=== PATIENT | male | born 1970 | race Caucasian/White ===

== ENCOUNTER 2018-12-21 20:21 | Inpatient (IN) | payer BC, OTHER ==
[~2018-12-21] VITALS: Ht 180.3 cm; Wt 106.1 kg
[2018-12-21] MEDS ORDERED: ASPIRIN 81 MG CHEW TAB PO ONE ×2 (21:00→22:00)
[2018-12-21 21:50] LABS: BILIRUBIN,URINE NEGATIVE (NEGATIVE); CLARITY,URINE CLEAR (CLEAR); COLOR,URINE YELLOW (YELLOW); KETONES,URINE 1+ (NEGATIVE); LEUKOCYTE ESTERASE ,URINE NEGATIVE (NEGATIVE); NITRITE,URINE NEGATIVE (NEGATIVE); PROTEIN,URINE DIPSTICK 2+ (NEGATIVE); URINE UROBILINOGEN 0.2 mg/dL (0.2 - 1)
--- NOTE | 2018-12-21 21:50 | NUR ---
PATIENT BROUGHT INTO TRIAGE. DR. LAMAS IN TRIAGE FOR PATIENT EVALUATION AND DISCUSSING PLAN OF CARE. PT VERBALIZES UNDERSTANDING.
[2018-12-21 21:52] LABS: BASOPHILS # (AUTO) 0.1 (0.0-0.1); BASOPHILS % 0.8 % (0.0-1.0); EOSINOPHILS # (AUTO) 0.4 (0.0-0.4); EOSINOPHILS % 3.9 % (0.0-6.0); HEMATOCRIT 44.6 % (38.2-49.6); HEMOGLOBIN 15.2 g/dL (14.0-18.0); LYMPHOCYTES # (AUTO) 3.1 (1.0-3.2); LYMPHOCYTES % 31.8 % (18.0-39.1); MEAN CORPUSCULAR HEMOGLOBIN 29.6 pg (28-32); MEAN CORPUSCULAR HGB CONC 34.1 g/dL (31-35); MEAN CORPUSCULAR VOLUME 86.9 fL (81-99); MONOCYTES # (AUTO) 0.7 (0.2-0.8); MONOCYTES % 6.6 % (4.4-11.3); NEUTROPHILS # (AUTO) 5.6 (2.1-6.9); NEUTROPHILS % 56.5 % (38.7-80.0); PLATELET COUNT 247 x10e3/uL (140-360); RED BLOOD COUNT 5.13 x10e6/uL (4.3-5.7); RED CELL DISTRIBUTION WIDTH 12.6 % (11.7-14.4)
[2018-12-21] MEDS ORDERED: NITROGLYCERIN 2% OINT 1 GM PKT TOP ONE (22:00)
--- NOTE | 2018-12-21 22:03 | Diagnostic Imaging Report ---
EXAMINATION: CHEST SINGLE (NOT PORTABLE) INDICATION: Chest pain COMPARISON: None FINDINGS: AP view TUBES and LINES: None. LUNGS: Lungs are well inflated. Lungs are clear. There is no evidence of pneumonia or pulmonary edema. PLEURA: No pleural effusion or pneumothorax. HEART AND MEDIASTINUM: The cardiomediastinal silhouette is unremarkable. BONES AND SOFT TISSUES: No acute osseous lesion. Soft tissues are unremarkable. UPPER ABDOMEN: No free air under the diaphragm. IMPRESSION: No acute thoracic abnormality. Signed by: Harshal Hoyt DO on 12/21/2018 10:00 PM
[2018-12-21 22:21] LABS: INR 0.8; PROTHROMBIN TIME 11.5 seconds (11.9-14.5)
[2018-12-21 22:22] LABS: PARTIAL THROMBOPLASTIN TIME 27.7 seconds (23.8-35.5)
[2018-12-21 22:25] LABS: ALBUMIN 4.6 g/dL (3.5-5.0); ALBUMIN/GLOBULIN RATIO 1.2 (0.8-2.0); ANION GAP 19.2 mmol/L (8-16); CREATININE, SERUM 1.3 mg/dL (0.72-1.25); POTASSIUM 4.2 mmol/L (3.5-5.1)
[2018-12-21 22:32] LABS: BACTERIA,URINE MODERATE /HPF; CREATINE KINASE MB 1.6 ng/mL (0-5.0); EPITHELIAL CELLS,URINE MODERATE /LPF
[2018-12-22] VITALS (13 sets, daily range): BP systolic 102–162; BP diastolic 49–115
--- NOTE | 2018-12-22 | NUR ---
REPORT GIVEN TO CARMEN COOPER
--- NOTE | 2018-12-22 | NUR ---
RECEIVED REPORT FROM CARMEN LOPEZ.
[2018-12-22 01:28] LABS: CREATINE KINASE MB 4.3 ng/mL (0-5.0)
--- OUTSIDE RECORDS SUMMARY | 2018-12-22 03:35 | XMS REPORT ---
Author Author [facility] Address Unknown Phone Unavailable Care Team Providers Care Injection Moulding Machine Operator Name Role Phone Abiola GUERRA Unavailable Unavailable Problems This patient has no known problems. Allergies, Adverse Reactions, Alerts This patient has no known allergies or adverse reactions. Medications This patient has no known medications. Results Test Description Test Time Test Comments Text Results Atomic Results Result Comments CHEST SINGLE (NOT PORTABLE) 2018-12-21 21:59:00 [place] [address] Patient Name: JESSIE MENDEZ MR #: [id number] : 1970 Age/Sex: 48/M Req #: [id number] Adm Physician: Ordered by: DECLAN GUERRA MD Report #: [id number] Location: ER Room/Bed: Procedure: [id number] DX/CHEST SINGLE (NOT PORTABLE) Exam Date: 12/21/18 Exam Time: 2124 REPORT STATUS: Signed EXAMINATION: CHEST SINGLE (NOT PORTABLE) INDICATION: Chest pain COMPARISON: None FINDINGS: AP view TUBES and LINES: None. LUNGS: Lungs are well inflated. Lungs are clear. There is no evidence of pneumonia or pulmonary edema. PLEURA: No pleural effusion or pneumothorax. HEART AND MEDIASTINUM: The cardiomediastinal silhouette is unremarkable. BONES AND SOFT TISSUES: No acute osseous lesion. Soft tissues are unremarkable. UPPER ABDOMEN: No free air under the diaphragm. IMPRESSION: No acute thoracic abnormality. Signed by: Harshal Hoyt DO on 12/21/2018 10:00 PM Dictated By: HARSHAL HOYT DO 99 Transcribed By: GERA on 12/21/182199 COPY TO: DECLAN GUERRA MD
--- NOTE | 2018-12-22 08:35 | NUR ---
REPORT FROM CARMEN RENEE; PATIENT SLEEPING AT THIS TIME. WILL CONTINUE TO MONITOR.
[2018-12-22] MEDS ORDERED: ASPIRIN 81 MG ENTERIC COATED PO SCH (09:00)
[2018-12-22 09:09] LABS: CREATINE KINASE MB 56.7 ng/mL (0-5.0)
[2018-12-22] MEDS ORDERED: HEPARIN SOD (PORCINE) 5,000 UNIT/ML VIAL IV ONE (09:30)
[2018-12-22] MEDS: HEPARIN 25,000 UNIT 1,000 UNIT in DEXTROSE 5% 250ML 250 ML IV SCH ×4 (10:23→11:21)
[2018-12-22] MEDS ORDERED: HEPARIN 25,000 UNIT DRIP IV ONE (10:27)
--- NOTE | 2018-12-22 11:25 | NUR ---
@ 1023 - HEPARIN INFUSION BEGAN AT 11MLS/HR, BASED ON PROTOCOL IN EMR; @ 1122 - HEPARIN INFUSION NOW RUNNING AT 10MLS/HR BASED ON ORDER NOW PLACED FOR HEPARIN DOSING. VERIFIED BY CARMEN DRUMMOND
[2018-12-22] MEDS ORDERED: METOPROLOL TARTRATE 25 MG TAB PO SCH (11:30)
--- NOTE | 2018-12-22 11:41 | NUR ---
HEPARIN DRIP DISCONTINUED @[address] POT[address] DR. POTTS AT BEDSIDE SPEAKING WITH PATIENT.
[2018-12-22] MEDS ORDERED: CLOPIDOGREL BISULFATE 75 MG TAB ONE (11:43)
[2018-12-22] MEDS ORDERED: CLOPIDOGREL BISULFATE 75 MG TAB PO ONE (11:45)
[2018-12-22] MEDS ORDERED: SODIUM CHLORIDE 0.9% 1000ML 1,000 ML ONE ×2 (11:55→12:03)
[2018-12-22] MEDS ORDERED: EPTIFIBATIDE 75mg 100ML 100 ML IV STA (11:58)
[2018-12-22] MEDS: EPTIFIBATIDE 75mg 100ML 100 ML IV SCH ×3 (12:00→23:45)
[2018-12-22] MEDS ORDERED: EPTIFIBATIDE 2 MG/1 ML 10ML VIAL IV ONE ×2 (12:00→12:15)
[2018-12-22] MEDS ORDERED: FENTANYL CITRATE/PF 100MCG/2 ML INJ ONE (12:02)
[2018-12-22] MEDS ORDERED: MIDAZOLAM HCL 2 MG/2 ML VIAL ONE (12:02)
[2018-12-22] MEDS ORDERED: HEPARIN SOD/SOD CHLORIDE 2,000 ML ONE (12:02)
[2018-12-22] MEDS ORDERED: LIDOCAINE HCL 2% LOCAL 20 ML VIAL ONE (12:02)
[2018-12-22] MEDS ORDERED: IOPAMIDOL 370 MG/ML 200 ML INFUS..BTL INJ ONE ×2 (12:03→12:56)
[2018-12-22] MEDS ORDERED: EPTIFIBATIDE 75mg 100ML 100 ML ONE (12:04)
--- NOTE | 2018-12-22 12:26 | NUR ---
REPORT TO CLAY TRANSPORTER RN, CONSENT DONE AT BEDSIDE, PATIENT CLOTHING AND JEWELRY REMOVED AND SENT WITH DAUGHTER.
[2018-12-22] MEDS ORDERED: VERAPAMIL HCL 2.5 MG/ML 2 ML VIAL ONE (12:39)
[2018-12-22] MEDS ORDERED: SODIUM CHLORIDE 0.9% 50ML 50 ML ONE (12:56)
[2018-12-22] MEDS ORDERED: BIVALRIUDIN 250 MG/VIAL VIAL IV ONE (12:56)
--- NOTE | 2018-12-22 13:25 | NUR ---
bedside report received from Qing Ng RN. Alert oriented and appropriate, PERRLA, respirations even and unlabored to room air. Pulses x4 extremities equal and strong. Pedal pulses PT/DP strong and marked. Cap fill brisk < 3 sec. TR band to right wrist w/ 15ml Skin warm and dry integrity appears intact. IV 18g to left AC presents healthy w/o s/s of infiltration or complaint. Abdomen soft and supple. No personal affects with patient. Family not available. Pt verbalizes understanding of POC. On bedside telemetry room 10. Currently w/o complaint of pain or need. Integrilin verified by qing/Tiburcio. bed low and locked, call light at bedside. monitoring active. -cgf
--- NOTE | 2018-12-22 13:40 | NUR ---
1340pm Bedside report received from Tiburcio MORALES. Identiferx3 Alert oriented and appropriate, PERRLA, respirations even and unlabored to room air. Pulses x4 extremities equal and strong. Pedal pulses PT/DP XXXXX Cap fill brisk < 3 sec. NSTEMI heart cath from ED Dr Rosi Baptiste. [facility] Stents x2 LAD and x1 Circ via RT TR band approach (15cc air)ok to reduce at 1520pm Integrilin drip to continue at 17cchr via pump.High alert drip verified with Tiburcio MORALES. Skin warm and dry integrity appears D/I. IV 18g to left ac. Presents healthy w/o s/s of infiltration or complaint. Abdomen soft and supple. pt offered toileting, denies need to urinate or defecate. No personal affects with patient. Family at bedside Md spoke with family and presented with copies stent card and diagram. Pt and family verbalizes understanding of POC. Rt Tr band site w/o s/s hematoma or oozing. ICU staff will reduce air. Has normal neuro vascular function. Dressing dry and intact. 1430p Report phone ICU public health staff nurseCARMEN Crow. Transported to ICU #[id number] on zoll monitor VS stable NO gross issues pain pallor pressure or dysrhythmia. ds/carmen
--- NOTE | 2018-12-22 13:46 | NUR ---
report off to Maria Victoria MORALES, Dr Rosi Baptiste speaking w/ pt and received verbal consent to call daughter
[2018-12-22] MEDS ORDERED: HYDROCODONE/APAP 5MG-325MG TAB PO PRN (14:00)
[2018-12-22] MEDS ORDERED: ACETAMINOPHEN 325 MG TAB PO PRN (14:00)
[2018-12-22] MEDS ORDERED: ONDANSETRON HCL INJ 2MG/ML 2ML 2 MG/ML VIAL IV PRN (14:00)
--- NOTE | 2018-12-22 15:00 | NUR ---
1500 completed face to face handoff with Jocelynn Rn x2 high alert Integrilin check off for drip rate 17cchr via iv controller. Aware ok to reduce air in TR band at 1520pm No s/s oozing or hematoma Normal neuro vascular function Stable vs and Ekg Transfer completed to bed with Rn at bedside Low position ,locked and call light at bedside. No gross issues pain pallor or dysrhythmia. ds/rn
--- NOTE | 2018-12-22 15:02 | Consultation ---
DATE OF CONSULTATION: 12/22/2018 Cardiac consultation REASON FOR CONSULTATION: Urgent consultation from the emergency room with the patient with non-ST elevation myocardial infarction with positive troponin. HISTORY: A 48-year-old gentleman relatively healthy diagnosed at one stage with hypertension, hypercholesteremia. He is not taking his medication. He is very physically active. He is nonsmoker, not alcohol drinker. He went to work yesterday, had chest pain. He continued working and then at night his chest pain became more severe. He came to the emergency room. His initial EKG showed ST-segment depression in few leads. His 1st set of cardiac enzymes is normal. Urgent cardiac consultation is obtained where the patient is seen immediately in the emergency room with positive MB and troponin. The patient is still having a little bit of chest pressure, chest tightness. The patient on heparin, which was stopped upon my evaluation. The patient's symptoms are very typical of unstable coronary syndrome and now he has ruled in for non ST elevation myocardial infarction. Beside that, he denied having any other prior cardiovascular system complaint. He does have easy fatigability, shortness of breath on exertion recently and "some indigestion." He thought it is all GI in nature. REVIEW OF SYSTEMS: GENERAL: No fever, no chills. HEENT: No vision problem. No hearing problem. No allergies. No hay fever. PULMONARY: No cough. No hemoptysis. No recent travel. CARDIAC: As per acute illness. GI: No hematemesis. No melena. No indigestion. No heartburn. : No hematuria, no dysuria. MUSCULOSKELETAL: No aches, no pain. HEMATOLOGY: No easy bruising or bleeding. ENDOCRINE: No diabetes mellitus. SOCIAL HISTORY: He is divorcee. He is nonsmoker and non-alcohol drinker. He is garden equipment mechanic. HOME MEDICATION: None. ALLERGIES: NONE. PAST MEDICAL HISTORY: 1. Appendectomy. 2. Tonsillectomy. 3. Hypertension. 4. Hypercholesteremia, but he was not taking any medication. FAMILY HISTORY: Father at age 76 relatively well. Mother in her 50s with myocardial infarction. Two sibling, one brother, one sister, both are healthy. Two children, one daughter, one son are healthy. PHYSICAL EXAMINATION: VITAL SIGNS: Height of 5 feet 11 inches, weight of 234 pounds, blood pressure 120/80, heart rate of 90, respiratory rate of 18. HEENT: Pupils are reactive. NECK: No elevation of jugular venous pulsation. No bruit. CHEST: Clear to auscultation and percussion. HEART: PMI 5th left intercostal space. Normal first and second heart sounds. ABDOMEN: Soft with good bowel sounds. No organomegaly. No abdominal bruits. EXTREMITIES: No cyanosis, no clubbing, no edema. NEUROLOGIC: Nonfocal. IMPRESSION AND PLAN: 1. Non-ST elevation myocardial infarction. 2. Hypertension. 3. Hypercholesteremia. PLAN: The patient was given 600 mg Plavix. We will start Integrilin drip. The patient will be taken to the lab nurse for urgent cardiac catheterization and intervention. Procedure risks, benefits, alternatives are discussed and explained. MD DAVIDSON Scott/LISA /[id number]
--- NOTE | 2018-12-22 16:09 | NUR ---
Pt does not have an advanced directive. Patient refused advanced directives information.
--- NOTE | 2018-12-22 16:17 | Operative Report ---
DATE OF PROCEDURE: 12/22/2018 SURGEON: James Baptiste MD PROCEDURE PERFORMED: 1. Left heart cardiac catheterization, coronary angiography. 2. Left ventriculography. 3. PCI of the long prox mid LAD lesion with two overlapping stents. 4. PCI of the mid circumflex artery lesion with one drug-eluting stent. INDICATION FOR PROCEDURE: A 48-year-old gentleman with past medical history of hypertension, hypercholesteremia, presents to this institution with chest pain symptoms and rapidly elevating troponin going from baseline of 0.129 to 2.687 with a CK-MB going from 1.6 to 56.7, compatible with a diagnosis of [id number] myocardial infarction with ischemic rest pain. DESCRIPTION OF PROCEDURE: After risks, benefits, pros and cons of this procedure were briefly explained, the patient agreed to proceed. The patient was brought to the cardiac catheterization laboratory in an emergent fashion and the right wrist was prepped and draped in usual sterile fashion. Preprocedure aspirin and Plavix were given prior to arrival to the cardiac catheterization laboratory in addition to heparin and was given a couple of Integrilin boluses. A 1% lidocaine solution was used on the right wrist region. Access to the right radial artery was obtained and a short 6-Amharic Terumo slender sheath was placed. Intra-arterial verapamil 2.5 mg and nitroglycerin 200 mcg were given through the sheath and we decided to proceed with diagnostic angiography and left ventriculography. We took a 5-Amharic [place] 4.0 diagnostic catheter and selected both coronary arteries and performed left ventriculography. This revealed problem areas with a long proximal mid LAD lesion with haziness concerning for maybe thrombosis in addition to mid circumflex artery at 75% to 80% with haziness as well with ambiguous which one is the culprit artery. We decided to proceed with intervention. Left ventricular ejection fraction was performed prior to intervention showing EF of 45% with some mild hypokinesis globally. End-diastolic pressure of 18 mmHg. At that point in time, we took an exchange J-wire and took a 6-Amharic XB 3.5 lad guiding catheter and selected the left main coronary ostia. IV Angiomax bolus was given for systemic anticoagulation and Integrilin infusion was continued. We then took a 0.014 run-through 180 cm guidewire and successfully crossed into the distal LAD past the series of long 85% LAD lesion with GERA-2 flow. We performed two overlapping stents, a Resolute Chavez 2.5 x 38 in the mid LAD overlapped by a 3.0 x 22 deploying that proximally. The mid LAD stent was deployed up to 12 atmospheres of pressure. The overlapped proximal LAD stent was deployed up to 17 atmospheres of pressure. Next, we advanced the stent balloon and hit the overlap with the 15 atmospheres of pressure. Funneling of the artery quite nicely. Final angiography revealed 0% residual stenosis and GERA-3 flow improved from GERA-2 and no complications. At that point in time, we focused our attention to the mid circumflex artery, which showed a 75% to 80% hazy stenosis at the mid circumflex OM1 bifurcation. We took the same run-through wire and crossed the lesion. We then took a Synergy 2.25 x 16 mm drug-eluting stent and deployed up to 12 atmospheres of pressure. Final angiography revealed 0% residual stenosis, GERA-3 flow and no complications. At the conclusion of case, the guiding catheter was removed with a J-wire and a Terumo TR band was successfully deployed utilizing pain hemostasis technique and total of 15 mL of air was placed. COMPLICATIONS: None. ESTIMATED BLOOD LOSS: Minimal. FINDINGS: 1. Left main angiographically normal, gives rise to an LAD and circumflex branch. 2. The LAD has a long tubular prox to mid LAD stenosis followed by an 80% stenosis. The mid LAD was mild diffuse disease and the apical LAD has a 95% focal stenosis too distal for intervention. 3. The left circumflex artery gives rise to a mid marginal branch and at that junction, there is a 75% to 80% hazy stenosis in the mid circumflex artery extending into the proximal OM1 branch. 4. RCA is dominant, gives rise to right PDA, right PLV. There is a 50% distal RCA stenosis. 5. Left ventricular ejection fraction is 45% with mild global hypokinesis, end-diastolic pressure of 18 mmHg. There is no significant LV to aortic pullback gradient. INTERVENTION SUMMARY: 1. Successful treatment of the long tubular prox to mid LAD lesion with implantation of two overlapping stents of Resolute Chavez 3.0 x 22, followed by Resolute Chavez 2.5 x 38 mm drug-eluting stent, resulting in 0% residual stenosis and improvement of flow from GERA-2 to GERA-3 and no complications. 2. Successful treatment of the mid circumflex artery extending into the OM1 branch stenosis, which was 80% and hazy resulting in 0% residual stenosis and GERA-3 flow and this was treated with a Synergy 2.25 x 16 mm drug-eluting stent. PLAN/RECOMMENDATIONS: 1. Aspirin, Plavix therapy. 2. Statin therapy. 3. Aggressive risk factor modification medical therapy. 4. Integrilin infusion overnight. 5. Inpatient admission for further care management. MD DEBORAH Rocha/MODL /[id number]
[2018-12-22] MEDS: METOPROLOL TARTRATE 25 MG TAB PO SCH (17:15)
[2018-12-22] MEDS: ATORVASTATIN 20 MG TAB PO SCH (21:30)
[2018-12-22] MEDS: SODIUM CHLORIDE 0.9% 1000ML 1,000 ML IV SCH (23:53)
[2018-12-23] VITALS (22 sets, daily range): BP systolic 98–154; BP diastolic 72–110
[2018-12-23] MEDS: SODIUM CHLORIDE 0.9% 1000ML 1,000 ML IV SCH (02:21)
[2018-12-23 05:01] LABS: BASOPHILS # (AUTO) 0.1 (0.0-0.1); BASOPHILS % 0.4 % (0.0-1.0); EOSINOPHILS # (AUTO) 0.2 (0.0-0.4); EOSINOPHILS % 1.6 % (0.0-6.0); HEMATOCRIT 40.1 % (38.2-49.6); HEMOGLOBIN 13.5 g/dL (14.0-18.0); LYMPHOCYTES # (AUTO) 3.1 (1.0-3.2); LYMPHOCYTES % 26.5 % (18.0-39.1); MEAN CORPUSCULAR HEMOGLOBIN 29.6 pg (28-32); MEAN CORPUSCULAR HGB CONC 33.7 g/dL (31-35); MEAN CORPUSCULAR VOLUME 87.9 fL (81-99); MONOCYTES % 8.9 % (4.4-11.3); NEUTROPHILS # (AUTO) 7.2 (2.1-6.9); NEUTROPHILS % 62.3 % (38.7-80.0); PLATELET COUNT 227 x10e3/uL (140-360); RED BLOOD COUNT 4.56 x10e6/uL (4.3-5.7); RED CELL DISTRIBUTION WIDTH 12.7 % (11.7-14.4)
[2018-12-23 05:46] LABS: CHOL/HDL RATIO 8.7 (3.9-4.7); CHOLESTEROL 252 MD/DL (0-199); HDL CHOLESTEROL 29 MG/DL (40-60); TRIGLYCERIDES 589 MG/DL (0-149)
[2018-12-23] MEDS: EPTIFIBATIDE 75mg 100ML 100 ML IV SCH (06:35)
[2018-12-23 07:22] LABS: ALBUMIN 3.8 g/dL (3.5-5.0); ALBUMIN/GLOBULIN RATIO 1.2 (0.8-2.0); ANION GAP 15.2 mmol/L (8-16); CALCIUM 9.3 mg/dL (8.4-10.2); CREATININE, SERUM 1.29 mg/dL (0.72-1.25); POTASSIUM 4.2 mmol/L (3.5-5.1)
[2018-12-23] MEDS: METOPROLOL TARTRATE 25 MG TAB PO SCH (08:19)
[2018-12-23] MEDS: ASPIRIN 325 MG TAB PO SCH (08:19)
[2018-12-23] MEDS: CLOPIDOGREL BISULFATE 75 MG TAB PO SCH (08:20)
[2018-12-23] MEDS: CARVEDILOL 12.5 MG TAB PO SCH ×2 (15:51→17:00)
--- NOTE | 2018-12-23 16:44 | NUR ---
Nutrition Screen Note RD Recommendation for Physician: -Continue diet as ordered -RD provided education on diabetic diet as consulted. Plan of Care: RD following, monitoring for tolerance and adequacy, diet education Nutrition reason for involvement: RN Consult Diet education Primary Diagnose(s): NSTEMI PMH: HTN , hypercholesteremia Ht: 71in Wt: 240lb BMI: 33.5kg/m2 IBW: 172lb +/- 10% RD Assessment: (12/23) Chart reviewed. Labs and meds reviewed. 48yo M, who was admitted for NSTEMI. Pt had heart cath with stent placement yesterday. HbA1c at 11.8%. Visited pt in the room. Pt was eating well without any GI complains. Normal BM. Pt denied any chewing or swallowing difficulty. Pt denied any hx of diabetes. RD offered education on diabetic diet and pt was agreeable. All questions have been answered. Current Diet: ADA 1800 Malnutrition Evaluation (12/23/2018) The patient does not meet criteria for a specified degree of malnutrition at this time. Will re-evaluate at follow-up as appropriate. Diet Education Needs Assessment: Diet education indicated, pt was agreeable. Learner(s): pt Time spent: 20minutes Barriers: No barriers identified. Cultural/Language Modifications: No cultural/language modifications noted. Pt speaks Icelandic. Readiness: Acceptance Method: Discussions, handouts Topics: Carbohydrate exchanges, Carbohydrate counting handouts, Reading the nutrition label, meal planning tips, exercise tips, servings/portion sizes, S/S of hypo & hyperglycemia Understanding/Compliance: Expect fair understanding/compliance from pt. Will benefit from reinforcement. All questions have been answered. Nutrition Care Level: low Signed: Madeline Subramanian, , RD, LD
[2018-12-23] MEDS: ATORVASTATIN 20 MG TAB PO SCH (22:45)
[2018-12-24] VITALS: BP 163/112
[2018-12-24 02:38] VITALS: BP 163/112
[2018-12-24 04:00] VITALS: BP 154/94
--- NOTE | 2018-12-24 07:13 | NUR ---
Report given to CARMEN Roblero at this time. Pt resting comfortably in bed and in no apparent distress.
--- NOTE | 2018-12-24 07:24 | NUR ---
Rcvd patient in report this am. Patient is asleep in bed at this time. No s/s of distress noted
[2018-12-24 08:00] VITALS: BP 129/86
[2018-12-24] MEDS: CLOPIDOGREL BISULFATE 75 MG TAB PO SCH (08:22)
[2018-12-24] MEDS: CARVEDILOL 12.5 MG TAB PO SCH (08:22)
[2018-12-24] MEDS: ASPIRIN 325 MG TAB PO SCH (08:22)
[2018-12-24] MEDS ORDERED: LISINOPRIL 10 MG TAB PO SCH (09:00)
[2018-12-24 09:37] VITALS: BP 129/86
--- NOTE | 2018-12-24 10:36 | NUR ---
Patient is AAOx3. Patient is post op heart cath. No c/o chest pain at this time. Lung gu clear to auscultation. Bowel sounds present x4. Patient ambulates on his own. No shortness of breath noted Left AC IV in place
[2018-12-24] MEDS ORDERED: PLAVIX75 MG PO (11:48)
[2018-12-24 12:15] VITALS: BP 110/64
[2018-12-24] MEDS ORDERED: COREG3.125 MG PO (13:54)
[2018-12-24] MEDS ORDERED: ASPIR 8181 MG PO (13:54)
[2018-12-24] MEDS ORDERED: LIPITOR20 MG PO (13:55)
[2018-12-24] MEDS ORDERED: LISINOPRIL10 MG PO (13:55)
[2018-12-24] MEDS ORDERED: METFORMIN HCL500 MG PO (13:55)
--- NOTE | 2018-12-24 14:16 | NUR ---
Removed IV from left AC. Pressure dressing applied.
--- NOTE | 2018-12-24 14:19 | NUR ---
Patient discharged from facility to home. Patient assisted out via staff. Reviewed all discharge paperwork, follow up appts and RX's given. No questions, comments, or concerns verbalized at this time.
--- NOTE | 2018-12-24 20:41 | Discharge Summary ---
FINAL DIAGNOSIS: Non ST-elevation myocardial infarction. SECONDARY DIAGNOSES: 1. Newly diagnosed diabetes. 2. Dyslipidemia. 3. Hypertriglyceridemia. 4. Obesity. CONSULTANTS: Dr. Baptiste, Cardiology. PROCEDURES/STUDIES PERFORMED: 1. Stent placement. 2. Echocardiogram. SECONDARY DIAGNOSIS: Systolic congestive heart failure. HISTORY: Per H and P. HOSPITAL COURSE: The patient was admitted with non ST elevation UT. The patient was emergently taken to the microbiology laboratory manager where intervention was done. The patient also has depressed ejection fraction. At this time, he will be discharged home with aspirin, Plavix, beta-blockers, lisinopril, and statin. The patient will follow up with duct layer and we will re-evaluate the ejection fraction. As far as hypertriglyceridemia, possibly controlling his sugar, this make it better. The patient will be started on metformin for his newly diagnosed diabetes. The patient was seen and examined today. It took 32 minutes to discharge this patient. All his questions are answered. The patient will follow up with Cardiology in a week and also follow up with his primary care doctor in 2 to 4 weeks. CONDITION ON DISCHARGE: Improved. DISCHARGE MEDICATIONS: Please see medication reconciliation form. Of note, the patient understands no strenuous activity for the next month. MD TITO Vann/LISA /[id number]
== END 2018-12-24 14:19 | disposition home or self-care (01) | DRG 247 ==
LOC: ER 20:21 → ERHOLD 12-22 03:31 → CATH LAB V 12-22 12:14 → OBSVTOIN 12-22 13:55 → ICU 12-22 15:02 → MED/SURG 12-23 19:56
PROVIDERS: ADMIT Internal Medicine; ATTEND Internal Medicine
PROC: 027136Z Dilation of Coronary Artery, Two Arteries with Three Drug-eluting Intraluminal Devices, Percutaneous Approach (ICD-10-PCS; principal; 2018-12-22)
PROC: 4A023N7 Measurement of Cardiac Sampling and Pressure, Left Heart, Percutaneous Approach (ICD-10-PCS; 2018-12-22)
PROC: B2111ZZ Fluoroscopy of Multiple Coronary Arteries using Low Osmolar Contrast (ICD-10-PCS; 2018-12-22)
PROC: B2151ZZ Fluoroscopy of Left Heart using Low Osmolar Contrast (ICD-10-PCS; 2018-12-22)
DX: I21.4 Non-ST elevation (NSTEMI) myocardial infarction (principal); I10 Essential (primary) hypertension; I25.110 Atherosclerotic heart disease of native coronary artery with unstable angina pectoris; E78.00 Pure hypercholesterolemia, unspecified; Z82.49 Family history of ischemic heart disease and other diseases of the circulatory system; E66.9 Obesity, unspecified; Z68.32 Body mass index [BMI] 32.0-32.9, adult; E11.9 Type 2 diabetes mellitus without complications; Z79.84 Long term (current) use of oral hypoglycemic drugs
CPT/HCPCS: 36415; 71045; 80053; 80061; 81001; 82550; 82553; 83036; 83880; 84484; 85025; 85610; 85730; 92928; 92929; 93005; 93306; 93458; 99285; C1766; C1874; C1887; J0583; J1327; J1644; J2001; J2250; J3010; J7030; Q9967

== ENCOUNTER 2021-02-03 14:57 | Inpatient (IN) | payer OTHER ==
[~2021-02-03] VITALS: Ht 185.4 cm; Wt 124.4 kg
[~2021-02-03 14:57] MED LIST: ASPIR 8181 MG PO; COREG3.125 MG PO; ETOMIDATE 2 MG/ML 10 ML INJ IV ONE; LIPITOR20 MG PO; LISINOPRIL10 MG PO; METFORMIN HCL500 MG PO; MIDAZOLAM HCL 2 MG/2 ML VIAL ONE; PLAVIX75 MG PO; SUCCINYLCHOLINE CHLORIDE 20 MG/ML 10ML VIAL ONE; VECURONIUM BROMIDE FOR INJ 20 MG VIAL ONE; WATER STERILE 10 ML VIAL ONE
[2021-02-03] MEDS ORDERED: DEXAMETHASONE SOD PHOS INJ 4 MG/ML VIAL IV ONE (15:30)
[2021-02-03] MEDS ORDERED: ACETAMINOPHEN 325 MG TAB PO PRN (15:30)
[2021-02-03 15:53] LABS: BASOPHILS % 0.1 % (0.0-1.0); HEMATOCRIT 41.5 % (38.2-49.6); HEMOGLOBIN 14.2 g/dL (14.0-18.0); LYMPHOCYTES # (AUTO) 0.9 (1.0-3.2); LYMPHOCYTES % 11.5 % (18.0-39.1); MEAN CORPUSCULAR HGB CONC 34.2 g/dL (31-35); MEAN CORPUSCULAR VOLUME 84.9 fL (81-99); MONOCYTES # (AUTO) 0.9 (0.2-0.8); MONOCYTES % 12.2 % (4.4-11.3); NEUTROPHILS # (AUTO) 5.6 (2.1-6.9); NEUTROPHILS % 75.4 % (38.7-80.0); PLATELET COUNT 199 x10e3/uL (140-360); RED BLOOD COUNT 4.89 x10e6/uL (4.3-5.7); RED CELL DISTRIBUTION WIDTH 12.8 % (11.7-14.4)
[2021-02-03 16:05] LABS: ALBUMIN 3.6 g/dL (3.5-5.0); ANION GAP 18.1 mmol/L (8-16); CALCIUM 8.3 mg/dL (8.4-10.2); CREATININE, SERUM 1.58 mg/dL (0.72-1.25); POTASSIUM 3.1 mmol/L (3.5-5.1)
[2021-02-03 16:17] LABS: ALBUMIN/GLOBULIN RATIO 0.9 (0.8-2.0)
[2021-02-03] MEDS ORDERED: SODIUM CHLORIDE 0.9% 1000ML 1,000 ML IV SCH (16:45)
[2021-02-03] MEDS: ENOXAPARIN 30 MG/0.3 ML SYR SC SCH (18:29)
[2021-02-03] MEDS: ZINC SULFATE 220 MG CAP PO SCH (18:29)
[2021-02-03] MEDS: DEXAMETHASONE SOD PHOS 10 MG/1 ML VIAL IV SCH (18:29)
[2021-02-03] MEDS: ASCORBIC ACID 500 MG TAB PO SCH (18:29)
[2021-02-03] MEDS: ACETAMINOPHEN 325 MG TAB PO PRN (18:30)
[2021-02-03] MEDS ORDERED: REMDESIVIR 200MG 200 MG in SODIUM CHLORIDE 0.9% 100 ML 100 ML IV ONE (18:30)
[2021-02-03] MEDS: CEFTRIAXONE 1 GM in SODIUM CHLORIDE 0.9% 50ML 50 ML IV SCH (20:00)
[2021-02-03] MEDS ORDERED: ZOLPIDEM TARTRATE 5 MG TAB PO PRN (21:00)
[2021-02-03] MEDS ORDERED: POTASSIUM CHLORIDE 20 MEQ TAB CR PO STA (23:09)
[2021-02-04] MEDS: CEFTRIAXONE 1 GM in SODIUM CHLORIDE 0.9% 50ML 50 ML IV SCH (01:00)
[2021-02-04 07:33] LABS: BASOPHILS % 0.1 % (0.0-1.0); HEMATOCRIT 41.2 % (38.2-49.6); HEMOGLOBIN 13.8 g/dL (14.0-18.0); LYMPHOCYTES # (AUTO) 0.7 (1.0-3.2); LYMPHOCYTES % 7.8 % (18.0-39.1); MEAN CORPUSCULAR HEMOGLOBIN 28.8 pg (28-32); MEAN CORPUSCULAR HGB CONC 33.5 g/dL (31-35); MEAN CORPUSCULAR VOLUME 85.8 fL (81-99); MONOCYTES # (AUTO) 0.5 (0.2-0.8); NEUTROPHILS # (AUTO) 7.4 (2.1-6.9); NEUTROPHILS % 85.3 % (38.7-80.0); PLATELET COUNT 211 x10e3/uL (140-360)
[2021-02-04] MEDS: DEXAMETHASONE SOD PHOS 10 MG/1 ML VIAL IV SCH (09:34)
[2021-02-04 10:15] LABS: ALBUMIN 3.5 g/dL (3.5-5.0); ANION GAP 18.6 mmol/L (8-16); CALCIUM 8.8 mg/dL (8.4-10.2); CREATININE, SERUM 1.25 mg/dL (0.72-1.25); POTASSIUM 3.6 mmol/L (3.5-5.1)
[2021-02-04] MEDS: INSULIN LISPRO 100 UNIT/1 ML 3ML VIAL SQ SCH ×3 (11:44→21:00)
[2021-02-04] MEDS ORDERED: CLOPIDOGREL75 MG PO (11:51)
[2021-02-04] MEDS ORDERED: JARDIANCE10 MG PO (11:51)
[2021-02-04] MEDS ORDERED: TRULICITY0.75 MG/0. SC (11:51)
[2021-02-04] MEDS ORDERED: METFORMIN HCL850 MG PO (11:51)
[2021-02-04] MEDS ORDERED: LOSARTAN POTASS25 MG PO (11:51)
[2021-02-04] MEDS: REMDESIVIR 100MG 100 MG in SODIUM CHLORIDE 0.9% 100 ML 100 ML IV SCH (14:30)
[2021-02-04] MEDS: ASCORBIC ACID 500 MG TAB PO SCH (16:34)
[2021-02-05] MEDS: ENOXAPARIN 30 MG/0.3 ML SYR SC SCH (07:57)
[2021-02-05] MEDS: ASCORBIC ACID 500 MG TAB PO SCH ×2 (07:57→17:59)
[2021-02-05] MEDS: INSULIN LISPRO 100 UNIT/1 ML 3ML VIAL SQ SCH ×4 (07:57→20:56)
[2021-02-05] MEDS: DEXAMETHASONE SOD PHOS 10 MG/1 ML VIAL IV SCH (07:57)
[2021-02-05] MEDS: ZINC SULFATE 220 MG CAP PO SCH (07:57)
[2021-02-05] MEDS: METFORMIN HCL 850 MG TAB PO SCH ×2 (09:15→17:59)
[2021-02-05] MEDS ORDERED: INSULIN GLARGINE 100 UNITS/ML VIAL SQ ONE (09:15)
[2021-02-05 11:45] LABS: ANION GAP 15.3 mmol/L (8-16); CALCIUM 8.8 mg/dL (8.4-10.2); CREATININE, SERUM 1.22 mg/dL (0.72-1.25); POTASSIUM 3.3 mmol/L (3.5-5.1)
[2021-02-05] MEDS: REMDESIVIR 100MG 100 MG in SODIUM CHLORIDE 0.9% 100 ML 100 ML IV SCH (12:56)
[2021-02-05] MEDS ORDERED: POTASSIUM CHLORIDE 20 MEQ TAB CR PO STA (18:23)
[2021-02-05] MEDS: CEFTRIAXONE 1 GM in SODIUM CHLORIDE 0.9% 50ML 50 ML IV SCH (20:55)
[2021-02-05 21:00] VITALS: BP 148/55
[2021-02-05 21:21] VITALS: BP 130/59
[2021-02-05 21:47] VITALS: BP 130/59
[2021-02-05 22:00] VITALS: BP 125/59
[2021-02-05 23:00] VITALS: BP 119/62
[2021-02-06] VITALS (26 sets, daily range): BP systolic 122–158; BP diastolic 36–83
[2021-02-06 05:05] LABS: BASOPHILS % 0.1 % (0.0-1.0); HEMATOCRIT 39.5 % (38.2-49.6); HEMOGLOBIN 13.4 g/dL (14.0-18.0); LYMPHOCYTES # (AUTO) 0.8 (1.0-3.2); LYMPHOCYTES % 5.7 % (18.0-39.1); MEAN CORPUSCULAR HEMOGLOBIN 29.3 pg (28-32); MEAN CORPUSCULAR HGB CONC 33.9 g/dL (31-35); MEAN CORPUSCULAR VOLUME 86.2 fL (81-99); MONOCYTES # (AUTO) 0.9 (0.2-0.8); NEUTROPHILS # (AUTO) 11.4 (2.1-6.9); NEUTROPHILS % 85.6 % (38.7-80.0); PLATELET COUNT 212 x10e3/uL (140-360); RED BLOOD COUNT 4.58 x10e6/uL (4.3-5.7); RED CELL DISTRIBUTION WIDTH 13.3 % (11.7-14.4)
[2021-02-06 05:31] LABS: ALBUMIN 3.1 g/dL (3.5-5.0); ANION GAP 18.7 mmol/L (8-16); CALCIUM 8.8 mg/dL (8.4-10.2); CREATININE, SERUM 1.07 mg/dL (0.72-1.25); POTASSIUM 3.7 mmol/L (3.5-5.1)
[2021-02-06] MEDS: ASCORBIC ACID 500 MG TAB PO SCH ×2 (08:09→16:09)
[2021-02-06] MEDS: DEXAMETHASONE SOD PHOS 10 MG/1 ML VIAL IV SCH (08:09)
[2021-02-06] MEDS: METFORMIN HCL 850 MG TAB PO SCH ×2 (08:09→16:09)
[2021-02-06] MEDS: ZINC SULFATE 220 MG CAP PO SCH (08:09)
[2021-02-06] MEDS: INSULIN LISPRO 100 UNIT/1 ML 3ML VIAL SQ SCH ×4 (08:09→21:00)
[2021-02-06] MEDS: ENOXAPARIN SOD INJ 40 MG/0.4 ML SYR SC SCH (08:09)
[2021-02-06] MEDS: DEXMEDETOMIDINE 200MCG/NS 50ML 50 ML IV SCH (11:08)
[2021-02-06] MEDS: INSULIN GLARGINE 100 UNITS/ML VIAL SQ SCH (11:09)
[2021-02-06] MEDS: REMDESIVIR 100MG 100 MG in SODIUM CHLORIDE 0.9% 100 ML 100 ML IV SCH (14:18)
[2021-02-06] MEDS: CEFTRIAXONE 1 GM in SODIUM CHLORIDE 0.9% 50ML 50 ML IV SCH (20:27)
[2021-02-07] VITALS (23 sets, daily range): BP systolic 85–156; BP diastolic 52–91
[2021-02-07] MEDS: DEXMEDETOMIDINE 200MCG/NS 50ML 50 ML IV SCH ×2 (03:00→07:00)
[2021-02-07 05:55] LABS: BASOPHILS % 0.2 % (0.0-1.0); HEMATOCRIT 40.4 % (38.2-49.6); HEMOGLOBIN 13.3 g/dL (14.0-18.0); LYMPHOCYTES # (AUTO) 0.8 (1.0-3.2); LYMPHOCYTES % 6.1 % (18.0-39.1); MEAN CORPUSCULAR HEMOGLOBIN 28.7 pg (28-32); MEAN CORPUSCULAR HGB CONC 32.9 g/dL (31-35); MEAN CORPUSCULAR VOLUME 87.1 fL (81-99); MONOCYTES # (AUTO) 0.6 (0.2-0.8); MONOCYTES % 5.2 % (4.4-11.3); NEUTROPHILS # (AUTO) 10.7 (2.1-6.9); NEUTROPHILS % 86.1 % (38.7-80.0); PLATELET COUNT 133 x10e3/uL (140-360); RED BLOOD COUNT 4.64 x10e6/uL (4.3-5.7); RED CELL DISTRIBUTION WIDTH 13.5 % (11.7-14.4)
[2021-02-07] MEDS: INSULIN LISPRO 100 UNIT/1 ML 3ML VIAL SQ SCH ×3 (07:30→17:51)
[2021-02-07] MEDS: METFORMIN HCL 850 MG TAB PO SCH (08:00)
[2021-02-07] MEDS ORDERED: ACETAMINOPHEN 325 MG SUPP PR PRN (08:00)
[2021-02-07] MEDS: INSULIN GLARGINE 100 UNITS/ML VIAL SQ SCH (08:19)
[2021-02-07] MEDS: ENOXAPARIN SOD INJ 40 MG/0.4 ML SYR SC SCH (08:19)
[2021-02-07] MEDS: DEXAMETHASONE SOD PHOS 10 MG/1 ML VIAL IV SCH (08:19)
[2021-02-07 08:34] LABS: ANION GAP 18.6 mmol/L (8-16); CALCIUM 8.7 mg/dL (8.4-10.2); CREATININE, SERUM 0.98 mg/dL (0.72-1.25); POTASSIUM 3.6 mmol/L (3.5-5.1)
[2021-02-07] MEDS: ZINC SULFATE 220 MG CAP PO SCH (09:00)
[2021-02-07] MEDS: ASCORBIC ACID 500 MG TAB PO SCH ×2 (09:00→17:29)
[2021-02-07] MEDS ORDERED: SODIUM CHLORIDE 0.9% 1000ML 1,000 ML ONE ×2 (10:06→15:10)
[2021-02-07 13:14] LABS: ABG HCO3 24 mmol/L (22-26); ABG PCO2 45 mmHg (35-45); ABG PH 7.33 (7.35-7.45); ABG PO2 119 mmHg (80-105); ABG TCO2 25
[2021-02-07] MEDS: FENTANYL 2000MCG/NS 250 250 ML IV SCH (13:58)
[2021-02-07] MEDS: MIDAZOLAM HCL 5MG/ML 10ML VIAL 100 ML IV PRN ×2 (14:00→18:04)
[2021-02-07] MEDS: REMDESIVIR 100MG 100 MG in SODIUM CHLORIDE 0.9% 100 ML 100 ML IV SCH (14:12)
[2021-02-07] MEDS ORDERED: ROCURONIUM BROMIDE 1,250 MG in SODIUM CHLORIDE 0.9% 250ML 125 ML IV SCH (14:15)
[2021-02-07] MEDS ORDERED: NOREPINEPHRINE 8 MG/D5W 250 ML 250 ML ONE (15:56)
[2021-02-07] MEDS: NOREPINEPHRINE 8 MG/D5W 250 ML 250 ML IV SCH (17:28)
[2021-02-07] MEDS: CEFTRIAXONE 1 GM in SODIUM CHLORIDE 0.9% 50ML 50 ML IV SCH (21:30)
[2021-02-08] VITALS (25 sets, daily range): BP systolic 107–164; BP diastolic 45–86
[2021-02-08] MEDS: INSULIN LISPRO 100 UNIT/1 ML 3ML VIAL SQ SCH ×2 (00:05→06:08)
[2021-02-08] MEDS: NOREPINEPHRINE 8 MG/D5W 250 ML 250 ML IV SCH (03:06)
[2021-02-08] MEDS: FENTANYL 2000MCG/NS 250 250 ML IV SCH ×2 (04:38→17:06)
[2021-02-08] MEDS: MIDAZOLAM HCL 5MG/ML 10ML VIAL 100 ML IV PRN ×4 (04:39→23:58)
[2021-02-08 05:37] LABS: BASOPHILS # (AUTO) 0.1 (0.0-0.1); BASOPHILS % 0.4 % (0.0-1.0); EOSINOPHILS % 0.1 % (0.0-6.0); HEMATOCRIT 39.4 % (38.2-49.6); HEMOGLOBIN 12.9 g/dL (14.0-18.0); LYMPHOCYTES # (AUTO) 0.7 (1.0-3.2); LYMPHOCYTES % 4.9 % (18.0-39.1); MEAN CORPUSCULAR HEMOGLOBIN 28.8 pg (28-32); MEAN CORPUSCULAR HGB CONC 32.7 g/dL (31-35); MEAN CORPUSCULAR VOLUME 87.9 fL (81-99); MONOCYTES # (AUTO) 0.5 (0.2-0.8); MONOCYTES % 3.6 % (4.4-11.3); NEUTROPHILS # (AUTO) 11.6 (2.1-6.9); NEUTROPHILS % 85.9 % (38.7-80.0); PLATELET COUNT 111 x10e3/uL (140-360); RED BLOOD COUNT 4.48 x10e6/uL (4.3-5.7)
[2021-02-08 06:03] LABS: ALBUMIN 2.7 g/dL (3.5-5.0); ANION GAP 14.7 mmol/L (8-16); CALCIUM 8.2 mg/dL (8.4-10.2); CREATININE, SERUM 1.26 mg/dL (0.72-1.25); POTASSIUM 3.7 mmol/L (3.5-5.1)
[2021-02-08] MEDS: ENOXAPARIN SOD INJ 40 MG/0.4 ML SYR SC SCH (07:49)
[2021-02-08] MEDS: DEXAMETHASONE SOD PHOS 10 MG/1 ML VIAL IV SCH (07:49)
[2021-02-08] MEDS: ZINC SULFATE 220 MG CAP PO SCH (07:49)
[2021-02-08] MEDS: ASCORBIC ACID 500 MG TAB PO SCH ×2 (07:49→16:19)
[2021-02-08 08:16] LABS: ABG HCO3 25 mmol/L (22-26); ABG PCO2 41 mmHg (35-45); ABG PH 7.39 (7.35-7.45); ABG PO2 132 mmHg (80-105); ABG TCO2 26
[2021-02-08] MEDS ORDERED: SODIUM CHLORIDE 0.45% 500 ML IV ONE (12:00)
[2021-02-08] MEDS ORDERED: DEXTROSE 50% SYRINGE 50 ML IV PRN (12:15)
[2021-02-08] MEDS: INSULIN REGULAR, HUMAN 3ML VL 100 UNIT in SODIUM CHLORIDE 0.45% 100 ML 100 ML IV SCH ×2 (13:00)
[2021-02-08] MEDS ORDERED: ROCURONIUM 1250MG/NS 250 250 ML ONE (15:49)
[2021-02-08 17:32] LABS: ABG HCO3 20 mmol/L (22-26); ABG PCO2 32 mmHg (35-45); ABG PH 7.41 (7.35-7.45); ABG PO2 65 mmHg (80-105); ABG TCO2 21
[2021-02-08 19:51] LABS: FERRITIN 2380.14 ng/mL (21.81-274.66)
[2021-02-09] VITALS (26 sets, daily range): BP systolic 93–149; BP diastolic 50–78
[2021-02-09] MEDS: MIDAZOLAM HCL 5MG/ML 10ML VIAL 100 ML IV PRN ×5 (01:46→20:57)
[2021-02-09] MEDS: FENTANYL 2000MCG/NS 250 250 ML IV SCH ×5 (02:12→18:35)
[2021-02-09] MEDS: INSULIN REGULAR, HUMAN 3ML VL 100 UNIT in SODIUM CHLORIDE 0.45% 100 ML 100 ML IV SCH ×8 (03:26→22:00)
[2021-02-09] MEDS: ACETAMINOPHEN 325 MG TAB PO PRN (03:32)
[2021-02-09 06:49] LABS: BASOPHILS # (AUTO) 0.1 (0.0-0.1); BASOPHILS % 0.3 % (0.0-1.0); EOSINOPHILS % 0.1 % (0.0-6.0); HEMATOCRIT 37.2 % (38.2-49.6); LYMPHOCYTES # (AUTO) 0.7 (1.0-3.2); LYMPHOCYTES % 4.5 % (18.0-39.1); MEAN CORPUSCULAR HEMOGLOBIN 29.2 pg (28-32); MEAN CORPUSCULAR HGB CONC 32.3 g/dL (31-35); MEAN CORPUSCULAR VOLUME 90.5 fL (81-99); MONOCYTES # (AUTO) 0.6 (0.2-0.8); MONOCYTES % 4.2 % (4.4-11.3); NEUTROPHILS # (AUTO) 12.9 (2.1-6.9); NEUTROPHILS % 84.9 % (38.7-80.0); PLATELET COUNT 101 x10e3/uL (140-360); RED BLOOD COUNT 4.11 x10e6/uL (4.3-5.7); RED CELL DISTRIBUTION WIDTH 14.2 % (11.7-14.4)
[2021-02-09 07:19] LABS: ALBUMIN 2.5 g/dL (3.5-5.0); ALBUMIN/GLOBULIN RATIO 0.9 (0.8-2.0); ANION GAP 15.9 mmol/L (8-16); CALCIUM 8.3 mg/dL (8.4-10.2); CREATININE, SERUM 1.07 mg/dL (0.72-1.25); POTASSIUM 3.9 mmol/L (3.5-5.1)
[2021-02-09] MEDS: ROCURONIUM BROMIDE 1,250 MG in SODIUM CHLORIDE 0.9% 250ML 125 ML IV SCH (08:44)
[2021-02-09] MEDS: ASCORBIC ACID 500 MG TAB PO SCH ×2 (09:00→18:34)
[2021-02-09] MEDS: DEXAMETHASONE SOD PHOS 10 MG/1 ML VIAL IV SCH (09:00)
[2021-02-09 09:21] LABS: ABG HCO3 28 mmol/L (22-26); ABG PCO2 53 mmHg (35-45); ABG PH 7.33 (7.35-7.45); ABG PO2 88 mmHg (80-105); ABG TCO2 30
[2021-02-09] MEDS ORDERED: BISACODYL 10 MG SUPP PR PRN (09:30)
[2021-02-09] MEDS: ZINC SULFATE 220 MG CAP PO SCH (11:54)
[2021-02-09 15:54] LABS: ABG HCO3 28 mmol/L (22-26); ABG PCO2 48 mmHg (35-45); ABG PH 7.37 (7.35-7.45); ABG PO2 65 mmHg (80-105); ABG TCO2 29
[2021-02-09] MEDS: NOREPINEPHRINE 8 MG/D5W 250 ML 250 ML IV SCH ×3 (20:42→22:02)
[2021-02-09] MEDS: ENOXAPARIN SOD INJ 60 MG/0.6 ML SYR SC SCH (21:11)
[2021-02-10] VITALS (27 sets, daily range): BP systolic 102–132; BP diastolic 50–63
[2021-02-10] MEDS: MIDAZOLAM HCL 5MG/ML 10ML VIAL 100 ML IV PRN ×4 (02:31→22:39)
[2021-02-10] MEDS: FENTANYL 2000MCG/NS 250 250 ML IV SCH ×4 (02:32→22:59)
[2021-02-10] MEDS: ROCURONIUM BROMIDE 1,250 MG in SODIUM CHLORIDE 0.9% 250ML 125 ML IV SCH (03:51)
[2021-02-10] MEDS: INSULIN REGULAR, HUMAN 3ML VL 100 UNIT in SODIUM CHLORIDE 0.45% 100 ML 100 ML IV SCH ×2 (04:26)
[2021-02-10 06:31] LABS: BASOPHILS # (AUTO) 0.1 (0.0-0.1); BASOPHILS % 0.3 % (0.0-1.0); EOSINOPHILS % 0.1 % (0.0-6.0); HEMATOCRIT 35.6 % (38.2-49.6); HEMOGLOBIN 11.1 g/dL (14.0-18.0); LYMPHOCYTES # (AUTO) 0.8 (1.0-3.2); LYMPHOCYTES % 5.3 % (18.0-39.1); MEAN CORPUSCULAR HEMOGLOBIN 28.7 pg (28-32); MEAN CORPUSCULAR HGB CONC 31.2 g/dL (31-35); MONOCYTES # (AUTO) 0.7 (0.2-0.8); MONOCYTES % 4.5 % (4.4-11.3); NEUTROPHILS # (AUTO) 12.6 (2.1-6.9); NEUTROPHILS % 82.7 % (38.7-80.0); PLATELET COUNT 105 x10e3/uL (140-360); RED BLOOD COUNT 3.87 x10e6/uL (4.3-5.7); RED CELL DISTRIBUTION WIDTH 14.6 % (11.7-14.4)
[2021-02-10 06:54] LABS: ALBUMIN 2.3 g/dL (3.5-5.0); ALBUMIN/GLOBULIN RATIO 0.9 (0.8-2.0); ANION GAP 13.2 mmol/L (8-16); CALCIUM 8.1 mg/dL (8.4-10.2); POTASSIUM 4.2 mmol/L (3.5-5.1)
[2021-02-10 07:27] LABS: CREATININE, SERUM 0.96 mg/dL (0.72-1.25)
[2021-02-10 09:05] LABS: ABG PCO2 42 mmHg (35-45); ABG PH 7.41 (7.35-7.45); ABG PO2 63 mmHg (80-105)
[2021-02-10 09:06] LABS: ABG HCO3 27 mmol/L (22-26); ABG TCO2 28
[2021-02-10] MEDS: DEXAMETHASONE SOD PHOS 10 MG/1 ML VIAL IV SCH (09:29)
[2021-02-10] MEDS: ASCORBIC ACID 500 MG TAB PO SCH ×2 (09:29→16:55)
[2021-02-10] MEDS: ENOXAPARIN SOD INJ 60 MG/0.6 ML SYR SC SCH ×2 (09:30→20:57)
[2021-02-10] MEDS: ZINC SULFATE 220 MG CAP PO SCH (09:30)
[2021-02-10] MEDS ORDERED: ROCURONIUM 1250MG/NS 250 250 ML ONE (11:30)
[2021-02-10] MEDS ORDERED: ROCURONIUM 1250MG/NS 250 250 ML IV SCH (11:30)
[2021-02-10] MEDS: DEXTROSE 5% IV SCH ×2 (14:00→18:02)
[2021-02-10] MEDS: ROCURONIUM BROMIDE IV SCH ×2 (14:00→18:02)
[2021-02-11] VITALS (24 sets, daily range): BP systolic 113–192; BP diastolic 56–93
[2021-02-11] MEDS: INSULIN REGULAR, HUMAN 3ML VL 100 UNIT in SODIUM CHLORIDE 0.45% 100 ML 100 ML IV SCH ×4 (00:38→04:30)
[2021-02-11] MEDS ORDERED: INSULIN REGULAR, HUMAN 100 UNIT/1 ML ONE (02:46)
[2021-02-11] MEDS: MIDAZOLAM HCL 5MG/ML 10ML VIAL 100 ML IV PRN ×4 (04:33→22:04)
[2021-02-11] MEDS: FENTANYL 2000MCG/NS 250 250 ML IV SCH ×2 (05:30→20:29)
[2021-02-11 06:02] LABS: ALBUMIN 2.4 g/dL (3.5-5.0); ALBUMIN/GLOBULIN RATIO 0.9 (0.8-2.0); ANION GAP 14.7 mmol/L (8-16); CREATININE, SERUM 1.03 mg/dL (0.72-1.25); POTASSIUM 4.7 mmol/L (3.5-5.1)
[2021-02-11 06:19] LABS: BASOPHILS % 0.3 % (0.0-1.0); EOSINOPHILS % 0.1 % (0.0-6.0); HEMATOCRIT 37.4 % (38.2-49.6); HEMOGLOBIN 11.3 g/dL (14.0-18.0); LYMPHOCYTES # (AUTO) 0.9 (1.0-3.2); LYMPHOCYTES % 5.8 % (18.0-39.1); MEAN CORPUSCULAR HEMOGLOBIN 28.8 pg (28-32); MEAN CORPUSCULAR HGB CONC 30.2 g/dL (31-35); MONOCYTES # (AUTO) 0.8 (0.2-0.8); MONOCYTES % 5.6 % (4.4-11.3); NEUTROPHILS # (AUTO) 11.9 (2.1-6.9); NEUTROPHILS % 81.4 % (38.7-80.0); RED BLOOD COUNT 3.92 x10e6/uL (4.3-5.7); RED CELL DISTRIBUTION WIDTH 14.6 % (11.7-14.4)
[2021-02-11 06:38] LABS: PLATELET COUNT 89 x10e3/uL (140-360)
[2021-02-11 06:39] LABS: MEAN CORPUSCULAR VOLUME 95.4 fL (81-99)
[2021-02-11 08:44] LABS: ABG PH 7.25 (7.35-7.45)
[2021-02-11 08:45] LABS: ABG HCO3 30 mmol/L (22-26); ABG PCO2 68 mmHg (35-45); ABG PO2 66 mmHg (80-105); ABG TCO2 32
[2021-02-11] MEDS ORDERED: FUROSEMIDE INJ 10 MG/ML 4 ML VIAL IV ONE (08:45)
[2021-02-11] MEDS: ASCORBIC ACID 500 MG TAB PO SCH ×2 (09:00→17:00)
[2021-02-11] MEDS: ENOXAPARIN SOD INJ 60 MG/0.6 ML SYR SC SCH ×2 (09:00→20:48)
[2021-02-11] MEDS: ZINC SULFATE 220 MG CAP PO SCH (09:00)
[2021-02-11] MEDS: ALBUMIN 25% 25GM 100ML 0.25 GM/ML BTL IV SCH ×3 (10:00→21:15)
[2021-02-11] MEDS ORDERED: DEXTROSE 5% 1,000 ML IV ONE (14:00)
[2021-02-11] MEDS: AMLODIPINE BESYLATE 5 MG TAB PO SCH (14:04)
[2021-02-11] MEDS: NOREPINEPHRINE 8 MG/D5W 250 ML 250 ML IV SCH (16:30)
[2021-02-11] MEDS: PROPOFOL IV EMULSION 10MG/ML 100 ML IV PRN ×2 (19:36→20:50)
[2021-02-12] VITALS (22 sets, daily range): BP systolic 86–168; BP diastolic 43–85
[2021-02-12] MEDS: ACETAMINOPHEN 325 MG TAB PO PRN (01:04)
[2021-02-12] MEDS: PROPOFOL IV EMULSION 10MG/ML 100 ML IV PRN ×2 (03:18→06:46)
[2021-02-12] MEDS: FENTANYL 2000MCG/NS 250 250 ML IV SCH ×4 (03:20→21:24)
[2021-02-12] MEDS: MIDAZOLAM HCL 5MG/ML 10ML VIAL 100 ML IV PRN ×4 (03:40→21:24)
[2021-02-12] MEDS ORDERED: ROCURONIUM 1250MG/NS 250 250 ML ONE (04:29)
[2021-02-12] MEDS: ROCURONIUM BROMIDE IV SCH (04:30)
[2021-02-12] MEDS: DEXTROSE 5% IV SCH (04:30)
[2021-02-12] MEDS: INSULIN REGULAR, HUMAN 3ML VL 100 UNIT in SODIUM CHLORIDE 0.45% 100 ML 100 ML IV SCH ×8 (04:46→13:32)
[2021-02-12 05:50] LABS: BASOPHILS % 0.3 % (0.0-1.0); EOSINOPHILS # (AUTO) 0.3 (0.0-0.4); EOSINOPHILS % 1.8 % (0.0-6.0); HEMATOCRIT 34.8 % (38.2-49.6); HEMOGLOBIN 10.5 g/dL (14.0-18.0); LYMPHOCYTES # (AUTO) 1.2 (1.0-3.2); LYMPHOCYTES % 8.1 % (18.0-39.1); MEAN CORPUSCULAR HEMOGLOBIN 29.1 pg (28-32); MEAN CORPUSCULAR HGB CONC 30.2 g/dL (31-35); MEAN CORPUSCULAR VOLUME 96.4 fL (81-99); MONOCYTES # (AUTO) 0.4 (0.2-0.8); MONOCYTES % 2.6 % (4.4-11.3); NEUTROPHILS # (AUTO) 11.8 (2.1-6.9); NEUTROPHILS % 79.9 % (38.7-80.0); PLATELET COUNT 101 x10e3/uL (140-360); RED BLOOD COUNT 3.61 x10e6/uL (4.3-5.7); RED CELL DISTRIBUTION WIDTH 14.5 % (11.7-14.4)
[2021-02-12 06:42] LABS: ALBUMIN 3.1 g/dL (3.5-5.0); ALBUMIN/GLOBULIN RATIO 1.1 (0.8-2.0); ANION GAP 15.6 mmol/L (8-16); CALCIUM 7.7 mg/dL (8.4-10.2); CREATININE, SERUM 1.45 mg/dL (0.72-1.25); POTASSIUM 4.6 mmol/L (3.5-5.1)
[2021-02-12] MEDS: AMLODIPINE BESYLATE 5 MG TAB PO SCH (09:00)
[2021-02-12 10:09] LABS: ABG HCO3 32 mmol/L (22-26); ABG PCO2 82 mmHg (35-45); ABG PO2 46 mmHg (80-105); ABG TCO2 34
[2021-02-12 11:52] LABS: ABG HCO3 31 mmol/L (22-26); ABG PCO2 70 mmHg (35-45); ABG PH 7.26 (7.35-7.45); ABG PO2 51 mmHg (80-105); ABG TCO2 33
[2021-02-12 13:36] LABS: BAND NEUTROPHILS % (MANUAL) 3 %; EOSINOPHILS % (MANUAL) 3 % (0-7); LYMPHOCYTES % (MANUAL) 5 % (19-48); MONOCYTES % (MANUAL) 1 % (3.4-9.0); MYELOCYTES % (MANUAL) 4 % (0-0); NEUTROPHILS % (MANUAL) 84 % (40-74); NUCLEATED RED BLOOD CELLS 1; PLATELET ESTIMATE SLIGHTLY DECREASED; PLATELET MORPHOLOGY COMMENT NORMAL; RBC MORPHOLOGY COMMENT NORMAL
[2021-02-12] MEDS: ASCORBIC ACID 500 MG TAB PO SCH ×2 (13:58→18:13)
[2021-02-12] MEDS: ZINC SULFATE 220 MG CAP PO SCH (13:59)
[2021-02-12] MEDS: PROPOFOL IV EMULSION 50 ML IV SCH ×3 (13:59→23:00)
[2021-02-12] MEDS: NOREPINEPHRINE 8 MG/D5W 250 ML 250 ML IV SCH (16:30)
[2021-02-12] MEDS ORDERED: ENOXAPARIN SOD INJ 60 MG/0.6 ML SYR SC SCH (17:00)
[2021-02-12] MEDS: FUROSEMIDE INJ 100 MG in SODIUM CHLORIDE 0.9% 100 ML 90 ML IV SCH (18:13)
[2021-02-12] MEDS: ENOXAPARIN SOD INJ 40 MG/0.4 ML SYR SC SCH (18:14)
[2021-02-13] VITALS (21 sets, daily range): BP systolic 98–127; BP diastolic 49–80
[2021-02-13] MEDS: PROPOFOL IV EMULSION 50 ML IV SCH ×10 (03:30→23:44)
[2021-02-13] MEDS: MIDAZOLAM HCL 5MG/ML 10ML VIAL 100 ML IV PRN ×4 (05:58→22:31)
[2021-02-13 06:57] LABS: BASOPHILS # (AUTO) 0.1 (0.0-0.1); BASOPHILS % 0.3 % (0.0-1.0); EOSINOPHILS # (AUTO) 0.6 (0.0-0.4); EOSINOPHILS % 2.6 % (0.0-6.0); HEMATOCRIT 30.2 % (38.2-49.6); HEMOGLOBIN 9.7 g/dL (14.0-18.0); LYMPHOCYTES # (AUTO) 1.3 (1.0-3.2); LYMPHOCYTES % 5.2 % (18.0-39.1); MEAN CORPUSCULAR HEMOGLOBIN 29.7 pg (28-32); MEAN CORPUSCULAR HGB CONC 32.1 g/dL (31-35); MEAN CORPUSCULAR VOLUME 92.4 fL (81-99); MONOCYTES # (AUTO) 0.7 (0.2-0.8); MONOCYTES % 2.9 % (4.4-11.3); NEUTROPHILS # (AUTO) 19.9 (2.1-6.9); NEUTROPHILS % 82.6 % (38.7-80.0); PLATELET COUNT 123 x10e3/uL (140-360); RED BLOOD COUNT 3.27 x10e6/uL (4.3-5.7); RED CELL DISTRIBUTION WIDTH 14.5 % (11.7-14.4)
[2021-02-13 07:28] LABS: ALBUMIN 2.1 g/dL (3.5-5.0); ALBUMIN/GLOBULIN RATIO 0.6 (0.8-2.0); ANION GAP 19.2 mmol/L (8-16); CALCIUM 8.4 mg/dL (8.4-10.2); CREATININE, SERUM 3.24 mg/dL (0.72-1.25); POTASSIUM 4.2 mmol/L (3.5-5.1)
[2021-02-13] MEDS: FENTANYL 2000MCG/NS 250 250 ML IV SCH ×3 (07:39→22:30)
[2021-02-13] MEDS: AMLODIPINE BESYLATE 5 MG TAB PO SCH (07:45)
[2021-02-13 09:10] LABS: ABG HCO3 24 mmol/L (22-26); ABG PCO2 53 mmHg (35-45); ABG PH 7.26 (7.35-7.45); ABG PO2 57 mmHg (80-105); ABG TCO2 26
[2021-02-13] MEDS: ZINC SULFATE 220 MG CAP PO SCH (09:16)
[2021-02-13] MEDS: ASCORBIC ACID 500 MG TAB PO SCH ×2 (09:16→18:16)
[2021-02-13] MEDS ORDERED: Vancomycin IV 1 GM in SODIUM CHLORIDE 0.9% 250ML 250 ML IV ONE (10:15)
[2021-02-13] MEDS: FUROSEMIDE INJ 100 MG in SODIUM CHLORIDE 0.9% 100 ML 90 ML IV SCH ×3 (11:16→22:39)
[2021-02-13] MEDS: MEROPENEM 500 MG in SODIUM CHLORIDE 0.9% 50ML 50 ML IV SCH ×2 (11:45→21:14)
[2021-02-13] MEDS: ENOXAPARIN SOD INJ 40 MG/0.4 ML SYR SC SCH (18:16)
[2021-02-13] MEDS ORDERED: SODIUM CHLORIDE 0.9% 1000ML 1,000 ML ONE (19:14)
[2021-02-13] MEDS ORDERED: HEPARIN SOD (PORCINE) 1000 UNIT/ML SDV IV PRN (19:45)
[2021-02-13] MEDS ORDERED: SODIUM CHLORIDE 0.9% 1000ML 2,000 ML IV PRN (19:45)
[2021-02-13] MEDS: NOREPINEPHRINE 8 MG/D5W 250 ML 250 ML IV SCH ×2 (20:01→20:59)
[2021-02-13] MEDS: INSULIN REGULAR, HUMAN 3ML VL 100 UNIT in SODIUM CHLORIDE 0.45% 100 ML 100 ML IV SCH ×2 (20:41)
[2021-02-13] MEDS ORDERED: INSULIN REGULAR, HUMAN 100 UNIT/1 ML ONE (23:29)
[2021-02-14] VITALS (24 sets, daily range): BP systolic 105–137; BP diastolic 62–86
[2021-02-14] MEDS: INSULIN REGULAR, HUMAN 3ML VL 100 UNIT in SODIUM CHLORIDE 0.45% 100 ML 100 ML IV SCH ×2 (00:04)
[2021-02-14] MEDS: MIDAZOLAM HCL 5MG/ML 10ML VIAL 100 ML IV PRN ×4 (01:56→22:38)
[2021-02-14] MEDS: PROPOFOL IV EMULSION 50 ML IV SCH ×5 (02:26→17:22)
[2021-02-14 06:41] LABS: BASOPHILS # (AUTO) 0.1 (0.0-0.1); BASOPHILS % 0.3 % (0.0-1.0); EOSINOPHILS # (AUTO) 0.1 (0.0-0.4); EOSINOPHILS % 0.3 % (0.0-6.0); HEMOGLOBIN 9.5 g/dL (14.0-18.0); LYMPHOCYTES # (AUTO) 0.7 (1.0-3.2); LYMPHOCYTES % 2.4 % (18.0-39.1); MEAN CORPUSCULAR HEMOGLOBIN 29.5 pg (28-32); MEAN CORPUSCULAR HGB CONC 31.7 g/dL (31-35); MEAN CORPUSCULAR VOLUME 93.2 fL (81-99); MONOCYTES # (AUTO) 1.1 (0.2-0.8); MONOCYTES % 3.5 % (4.4-11.3); NEUTROPHILS # (AUTO) 27.3 (2.1-6.9); PLATELET COUNT 159 x10e3/uL (140-360); RED BLOOD COUNT 3.22 x10e6/uL (4.3-5.7); RED CELL DISTRIBUTION WIDTH 14.6 % (11.7-14.4)
[2021-02-14 07:20] LABS: ALBUMIN 1.8 g/dL (3.5-5.0); ALBUMIN/GLOBULIN RATIO 0.4 (0.8-2.0); ANION GAP 23.2 mmol/L (8-16); CALCIUM 8.5 mg/dL (8.4-10.2); CREATININE, SERUM 4.68 mg/dL (0.72-1.25)
[2021-02-14 07:27] LABS: POTASSIUM 6.2 mmol/L (3.5-5.1)
[2021-02-14 08:01] LABS: ABG HCO3 19 mmol/L (22-26); ABG PCO2 57 mmHg (35-45); ABG PH 7.15 (7.35-7.45); ABG PO2 91 mmHg (80-105); ABG TCO2 21
[2021-02-14 08:07] LABS: EOSINOPHILS % (MANUAL) 2 % (0-7); LYMPHOCYTES % (MANUAL) 5 % (19-48); MONOCYTES % (MANUAL) 4 % (3.4-9.0); MYELOCYTES % (MANUAL) 1 % (0-0); NEUTROPHILS % (MANUAL) 88 % (40-74); PLATELET ESTIMATE ADEQUATE; PLATELET MORPHOLOGY COMMENT NORMAL; RBC MORPHOLOGY COMMENT NORMAL
[2021-02-14] MEDS: FUROSEMIDE INJ 100 MG in SODIUM CHLORIDE 0.9% 100 ML 90 ML IV SCH (08:28)
[2021-02-14] MEDS: AMLODIPINE BESYLATE 5 MG TAB PO SCH (09:00)
[2021-02-14 09:06] LABS: ABG HCO3 19 mmol/L (22-26); ABG PCO2 57 mmHg (35-45); ABG PH 7.15 (7.35-7.45); ABG PO2 91 mmHg (80-105); ABG TCO2 21
[2021-02-14] MEDS ORDERED: MANNITOL 25% 12.5GM/50 ML VIAL ONE (10:00)
[2021-02-14] MEDS: ROCURONIUM 1250MG/NS 250 250 ML IV PRN (11:28)
[2021-02-14] MEDS: FENTANYL 2000MCG/NS 250 250 ML IV SCH ×2 (11:42→18:40)
[2021-02-14 13:27] LABS: ABG HCO3 27 mmol/L (22-26); ABG PCO2 59 mmHg (35-45); ABG PH 7.28 (7.35-7.45); ABG PO2 100 mmHg (80-105); ABG TCO2 29
[2021-02-14] MEDS: DOCUSATE SODIUM LIQD 100 MG/10 ML UDC NG SCH ×2 (14:13→17:21)
[2021-02-14] MEDS: ZINC SULFATE 220 MG CAP PO SCH (14:13)
[2021-02-14] MEDS: ASCORBIC ACID 500 MG TAB PO SCH ×2 (14:13→17:21)
[2021-02-14] MEDS: MEROPENEM 500 MG in SODIUM CHLORIDE 0.9% 50ML 50 ML IV SCH ×2 (14:14→23:14)
[2021-02-14] MEDS: LACTULOSE SYRUP 20 GM/30 ML UDC PO PRN (15:48)
[2021-02-14] MEDS: ENOXAPARIN SOD INJ 40 MG/0.4 ML SYR SC SCH (17:21)
[2021-02-14] MEDS: NOREPINEPHRINE 8 MG/D5W 250 ML 250 ML IV SCH (17:22)
[2021-02-14] MEDS ORDERED: INSULIN REGULAR, HUMAN 100 UNIT/1 ML ONE (21:05)
[2021-02-15] VITALS (28 sets, daily range): BP systolic 90–121; BP diastolic 48–69
[2021-02-15] MEDS: PROPOFOL IV EMULSION 50 ML IV SCH ×7 (00:46→22:38)
[2021-02-15] MEDS: FENTANYL 2000MCG/NS 250 250 ML IV SCH ×3 (02:24→16:10)
[2021-02-15] MEDS: MIDAZOLAM HCL 5MG/ML 10ML VIAL 100 ML IV PRN ×3 (03:47→13:45)
[2021-02-15] MEDS: LACTULOSE SYRUP 20 GM/30 ML UDC PO PRN (04:39)
[2021-02-15] MEDS: VANCOMYCIN 250MG/5ML ORAL SOLN PO SCH ×5 (05:05→23:51)
[2021-02-15] MEDS: ROCURONIUM 1250MG/NS 250 250 ML IV PRN ×2 (05:15→22:53)
[2021-02-15 06:35] LABS: BASOPHILS # (AUTO) 0.1 (0.0-0.1); BASOPHILS % 0.3 % (0.0-1.0); EOSINOPHILS # (AUTO) 0.2 (0.0-0.4); EOSINOPHILS % 0.8 % (0.0-6.0); HEMATOCRIT 28.8 % (38.2-49.6); HEMOGLOBIN 9.2 g/dL (14.0-18.0); LYMPHOCYTES # (AUTO) 0.6 (1.0-3.2); LYMPHOCYTES % 2.4 % (18.0-39.1); MEAN CORPUSCULAR HEMOGLOBIN 29.4 pg (28-32); MEAN CORPUSCULAR HGB CONC 31.9 g/dL (31-35); MONOCYTES # (AUTO) 1.3 (0.2-0.8); MONOCYTES % 4.7 % (4.4-11.3); NEUTROPHILS # (AUTO) 22.9 (2.1-6.9); NEUTROPHILS % 86.1 % (38.7-80.0); PLATELET COUNT 183 x10e3/uL (140-360); RED BLOOD COUNT 3.13 x10e6/uL (4.3-5.7)
[2021-02-15 07:23] LABS: ANION GAP 25.4 mmol/L (8-16); POTASSIUM 5.4 mmol/L (3.5-5.1)
[2021-02-15 07:44] LABS: ALBUMIN 1.7 g/dL (3.5-5.0); ALBUMIN/GLOBULIN RATIO 0.4 (0.8-2.0); CREATININE, SERUM 4.57 mg/dL (0.72-1.25)
[2021-02-15] MEDS: AMLODIPINE BESYLATE 5 MG TAB PO SCH (08:03)
[2021-02-15 08:57] LABS: BAND NEUTROPHILS % (MANUAL) 3 %; EOSINOPHILS % (MANUAL) 1 % (0-7); LYMPHOCYTES % (MANUAL) 3 % (19-48); MONOCYTES % (MANUAL) 3 % (3.4-9.0); NEUTROPHILS % (MANUAL) 90 % (40-74)
[2021-02-15] MEDS: ASCORBIC ACID 500 MG TAB PO SCH ×2 (09:11→17:59)
[2021-02-15] MEDS: DOCUSATE SODIUM LIQD 100 MG/10 ML UDC NG SCH ×2 (09:11→17:59)
[2021-02-15] MEDS: MEROPENEM 500 MG in SODIUM CHLORIDE 0.9% 50ML 50 ML IV SCH ×2 (09:11→21:22)
[2021-02-15] MEDS: ZINC SULFATE 220 MG CAP PO SCH (09:11)
[2021-02-15 09:41] LABS: ABG HCO3 24 mmol/L (22-26); ABG PCO2 75 mmHg (35-45); ABG PH 7.11 (7.35-7.45); ABG PO2 85 mmHg (80-105); ABG TCO2 26
[2021-02-15] MEDS ORDERED: HEPARIN 25,000 UNIT 1,500 UNIT in DEXTROSE 5% 250ML 250 ML IV SCH (11:00)
[2021-02-15] MEDS: HEPARIN 25,000 UNIT 1,500 UNIT in DEXTROSE 5% 250ML 250 ML IV SCH ×3 (14:28→22:16)
[2021-02-15 19:33] LABS: ABG PCO2 45 mmHg (35-45); ABG PH 7.34 (7.35-7.45); ABG PO2 104 mmHg (80-105)
[2021-02-15 19:34] LABS: ABG HCO3 25 mmol/L (22-26); ABG TCO2 24.7
[2021-02-15 20:02] LABS: INR 0.9; PARTIAL THROMBOPLASTIN TIME 25.5 seconds (23.8-35.5)
[2021-02-15 20:03] LABS: PROTHROMBIN TIME 10.1 seconds (11.9-14.5)
[2021-02-15] MEDS: INSULIN REGULAR, HUMAN 3ML VL 100 UNIT in SODIUM CHLORIDE 0.45% 100 ML 100 ML IV SCH ×4 (20:49→21:54)
[2021-02-15] MEDS: NOREPINEPHRINE 8 MG/D5W 250 ML 250 ML IV SCH (21:48)
[2021-02-16] VITALS (28 sets, daily range): BP systolic 89–131; BP diastolic 45–71
[2021-02-16] MEDS: MIDAZOLAM HCL 5MG/ML 10ML VIAL 100 ML IV PRN ×5 (00:21→21:59)
[2021-02-16] MEDS: PROPOFOL IV EMULSION 50 ML IV SCH ×5 (02:25→20:47)
[2021-02-16 04:37] LABS: BASOPHILS # (AUTO) 0.1 (0.0-0.1); BASOPHILS % 0.3 % (0.0-1.0); EOSINOPHILS # (AUTO) 0.3 (0.0-0.4); EOSINOPHILS % 1.6 % (0.0-6.0); HEMATOCRIT 26.1 % (38.2-49.6); HEMOGLOBIN 8.5 g/dL (14.0-18.0); LYMPHOCYTES % 5.1 % (18.0-39.1); MEAN CORPUSCULAR HEMOGLOBIN 29.2 pg (28-32); MEAN CORPUSCULAR HGB CONC 32.6 g/dL (31-35); MEAN CORPUSCULAR VOLUME 89.7 fL (81-99); MONOCYTES # (AUTO) 1.2 (0.2-0.8); MONOCYTES % 5.9 % (4.4-11.3); NEUTROPHILS # (AUTO) 15.4 (2.1-6.9); NEUTROPHILS % 78.9 % (38.7-80.0); PLATELET COUNT 185 x10e3/uL (140-360); RED BLOOD COUNT 2.91 x10e6/uL (4.3-5.7)
[2021-02-16 04:57] LABS: ALBUMIN 1.5 g/dL (3.5-5.0); ALBUMIN/GLOBULIN RATIO 0.3 (0.8-2.0); ANION GAP 22.6 mmol/L (8-16); CALCIUM 8.3 mg/dL (8.4-10.2); CREATININE, SERUM 3.69 mg/dL (0.72-1.25); POTASSIUM 3.6 mmol/L (3.5-5.1)
[2021-02-16] MEDS: VANCOMYCIN 250MG/5ML ORAL SOLN PO SCH ×3 (05:18→18:00)
[2021-02-16] MEDS: FENTANYL 2000MCG/NS 250 250 ML IV SCH ×3 (05:42→19:33)
[2021-02-16] MEDS ORDERED: PROPOFOL IV EMULSION 10MG/ML 100 ML ONE (08:41)
[2021-02-16] MEDS: AMLODIPINE BESYLATE 5 MG TAB PO SCH (09:00)
[2021-02-16 09:08] LABS: ABG HCO3 28 mmol/L (22-26); ABG PCO2 66 mmHg (35-45); ABG PH 7.23 (7.35-7.45); ABG PO2 54 mmHg (80-105); ABG TCO2 30
[2021-02-16] MEDS: ASCORBIC ACID 500 MG TAB PO SCH ×2 (13:06→17:00)
[2021-02-16] MEDS: ZINC SULFATE 220 MG CAP PO SCH (13:06)
[2021-02-16] MEDS: MEROPENEM 500 MG in SODIUM CHLORIDE 0.9% 50ML 50 ML IV SCH ×2 (13:06→21:23)
[2021-02-16] MEDS: DOCUSATE SODIUM LIQD 100 MG/10 ML UDC NG SCH ×2 (13:06→17:00)
[2021-02-16] MEDS: ROCURONIUM 1250MG/NS 250 250 ML IV PRN (16:37)
[2021-02-16] MEDS: HEPARIN 25,000 UNIT 1,500 UNIT in DEXTROSE 5% 250ML 250 ML IV SCH (19:22)
[2021-02-16] MEDS: NOREPINEPHRINE 8 MG/D5W 250 ML 250 ML IV SCH ×3 (19:56→22:25)
[2021-02-17] VITALS (28 sets, daily range): BP systolic 93–147; BP diastolic 54–87
[2021-02-17] MEDS: VANCOMYCIN 250MG/5ML ORAL SOLN PO SCH ×5 (00:33→23:08)
[2021-02-17] MEDS: HEPARIN 25,000 UNIT 1,500 UNIT in DEXTROSE 5% 250ML 250 ML IV SCH (02:30)
[2021-02-17] MEDS ORDERED: INSULIN REGULAR, HUMAN 100 UNIT/1 ML ONE ×2 (02:37→02:38)
[2021-02-17] MEDS ORDERED: INSULIN REGULAR IN 0.9 % NACL 100 ML IV ONE (03:05)
[2021-02-17] MEDS: FENTANYL 2000MCG/NS 250 250 ML IV SCH ×4 (03:11→23:17)
[2021-02-17] MEDS: MIDAZOLAM HCL 5MG/ML 10ML VIAL 100 ML IV PRN ×5 (03:12→23:16)
[2021-02-17] MEDS: INSULIN REGULAR, HUMAN 3ML VL 100 UNIT in SODIUM CHLORIDE 0.45% 100 ML 100 ML IV SCH ×4 (03:39→23:42)
[2021-02-17] MEDS: PROPOFOL IV EMULSION 50 ML IV SCH ×3 (05:55→15:42)
[2021-02-17 05:59] LABS: BASOPHILS # (AUTO) 0.1 (0.0-0.1); BASOPHILS % 0.4 % (0.0-1.0); EOSINOPHILS # (AUTO) 0.3 (0.0-0.4); HEMATOCRIT 26.4 % (38.2-49.6); HEMOGLOBIN 8.6 g/dL (14.0-18.0); LYMPHOCYTES # (AUTO) 1.3 (1.0-3.2); LYMPHOCYTES % 4.6 % (18.0-39.1); MEAN CORPUSCULAR HEMOGLOBIN 29.7 pg (28-32); MEAN CORPUSCULAR HGB CONC 32.6 g/dL (31-35); NEUTROPHILS # (AUTO) 22.1 (2.1-6.9); NEUTROPHILS % 75.5 % (38.7-80.0); PLATELET COUNT 262 x10e3/uL (140-360); RED CELL DISTRIBUTION WIDTH 15.9 % (11.7-14.4)
[2021-02-17 06:30] LABS: ALBUMIN 1.6 g/dL (3.5-5.0); ALBUMIN/GLOBULIN RATIO 0.3 (0.8-2.0); CALCIUM 8.1 mg/dL (8.4-10.2); CREATININE, SERUM 5.06 mg/dL (0.72-1.25)
[2021-02-17 07:34] LABS: ANISOCYTOSIS SLIGHT; BAND NEUTROPHILS % (MANUAL) 5 %; EOSINOPHILS % (MANUAL) 3 % (0-7); HYPOCHROMASIA SLIGHT; LYMPHOCYTES % (MANUAL) 4 % (19-48); METAMYELOCYTES % (MANUAL) 3 % (0-0); MONOCYTES % (MANUAL) 5 % (3.4-9.0); MYELOCYTES % (MANUAL) 5 % (0-0); NEUTROPHILS % (MANUAL) 74 % (40-74); PLATELET ESTIMATE ADEQUATE; PLATELET MORPHOLOGY COMMENT NORMAL; RBC MORPHOLOGY COMMENT NORMAL
[2021-02-17] MEDS: ASCORBIC ACID 500 MG TAB PO SCH ×2 (09:00→18:27)
[2021-02-17] MEDS: DOCUSATE SODIUM LIQD 100 MG/10 ML UDC NG SCH ×2 (09:00→18:27)
[2021-02-17] MEDS: AMLODIPINE BESYLATE 5 MG TAB PO SCH (09:00)
[2021-02-17 09:01] LABS: ABG HCO3 23 mmol/L (22-26); ABG PCO2 73 mmHg (35-45); ABG PH 7.11 (7.35-7.45); ABG PO2 69 mmHg (80-105)
[2021-02-17 09:02] LABS: ABG TCO2 25
[2021-02-17] MEDS: MEROPENEM 500 MG in SODIUM CHLORIDE 0.9% 50ML 50 ML IV SCH (10:15)
[2021-02-17] MEDS: ZINC SULFATE 220 MG CAP PO SCH (12:17)
[2021-02-17] MEDS: NOREPINEPHRINE 8 MG/D5W 250 ML 250 ML IV SCH (16:31)
[2021-02-17] MEDS: ROCURONIUM 1250MG/NS 250 250 ML IV PRN (16:31)
[2021-02-17] MEDS: LACTULOSE SYRUP 20 GM/30 ML UDC PO PRN (16:31)
[2021-02-17] MEDS ORDERED: VASOPRESSIN INJ 20 UNIT/ML VIAL ONE (20:14)
[2021-02-17] MEDS ORDERED: DEXTROSE 5% 50ML 50 ML IV ONE (20:18)
[2021-02-17] MEDS: VASOPRESSIN 60 UNIT in DEXTROSE 5% 50ML 57 ML IV PRN (20:20)
[2021-02-18] VITALS (27 sets, daily range): BP systolic 89–155; BP diastolic 54–81
[2021-02-18] MEDS: NOREPINEPHRINE 8 MG/D5W 250 ML 250 ML IV SCH ×8 (01:57→21:34)
[2021-02-18] MEDS: VANCOMYCIN 250MG/5ML ORAL SOLN PO SCH ×4 (05:15→23:01)
[2021-02-18] MEDS: PROPOFOL IV EMULSION 50 ML IV SCH ×3 (05:59→12:30)
[2021-02-18] MEDS: FENTANYL 2000MCG/NS 250 250 ML IV SCH ×3 (06:14→20:48)
[2021-02-18 06:23] LABS: BASOPHILS # (AUTO) 0.1 (0.0-0.1); BASOPHILS % 0.3 % (0.0-1.0); EOSINOPHILS # (AUTO) 0.3 (0.0-0.4); EOSINOPHILS % 0.9 % (0.0-6.0); HEMATOCRIT 25.4 % (38.2-49.6); HEMOGLOBIN 8.2 g/dL (14.0-18.0); LYMPHOCYTES # (AUTO) 2.2 (1.0-3.2); LYMPHOCYTES % 6.4 % (18.0-39.1); MEAN CORPUSCULAR HEMOGLOBIN 29.2 pg (28-32); MEAN CORPUSCULAR HGB CONC 32.3 g/dL (31-35); MEAN CORPUSCULAR VOLUME 90.4 fL (81-99); MONOCYTES # (AUTO) 2.1 (0.2-0.8); MONOCYTES % 6.1 % (4.4-11.3); NEUTROPHILS # (AUTO) 24.8 (2.1-6.9); NEUTROPHILS % 72.2 % (38.7-80.0); PLATELET COUNT 311 x10e3/uL (140-360); RED BLOOD COUNT 2.81 x10e6/uL (4.3-5.7); RED CELL DISTRIBUTION WIDTH 16.2 % (11.7-14.4)
[2021-02-18] MEDS: HEPARIN 25,000 UNIT 1,500 UNIT in DEXTROSE 5% 250ML 250 ML IV SCH ×2 (06:46→08:00)
[2021-02-18 06:57] LABS: ALBUMIN 1.5 g/dL (3.5-5.0); ALBUMIN/GLOBULIN RATIO 0.3 (0.8-2.0); ANION GAP 25.5 mmol/L (8-16); CALCIUM 8.1 mg/dL (8.4-10.2); CREATININE, SERUM 3.77 mg/dL (0.72-1.25); POTASSIUM 4.5 mmol/L (3.5-5.1)
[2021-02-18] MEDS: MIDAZOLAM HCL 5MG/ML 10ML VIAL 100 ML IV PRN ×2 (08:00→20:51)
[2021-02-18] MEDS: DOCUSATE SODIUM LIQD 100 MG/10 ML UDC NG SCH ×2 (08:18→17:42)
[2021-02-18] MEDS: ASCORBIC ACID 500 MG TAB PO SCH ×2 (08:18→17:00)
[2021-02-18] MEDS: ZINC SULFATE 220 MG CAP PO SCH (08:18)
[2021-02-18] MEDS: AMLODIPINE BESYLATE 5 MG TAB PO SCH (08:19)
[2021-02-18 08:53] LABS: ABG PH 7.18 (7.35-7.45)
[2021-02-18 08:54] LABS: ABG HCO3 26 mmol/L (22-26); ABG PCO2 69 mmHg (35-45); ABG PO2 83 mmHg (80-105); ABG TCO2 28
[2021-02-18 09:56] LABS: ANISOCYTOSIS SLIGHT; HYPOCHROMASIA SLIGHT; LYMPHOCYTES % (MANUAL) 8 % (19-48); METAMYELOCYTES % (MANUAL) 3 % (0-0); MONOCYTES % (MANUAL) 9 % (3.4-9.0); MYELOCYTES % (MANUAL) 5 % (0-0); NEUTROPHILS % (MANUAL) 75 % (40-74); NUCLEATED RED BLOOD CELLS 5; PLATELET ESTIMATE ADEQUATE; PLATELET MORPHOLOGY COMMENT NORMAL; POLYCHROMASIA FEW; RBC MORPHOLOGY COMMENT NORMAL
[2021-02-18 13:59] LABS: ABG PH 7.21 (7.35-7.45)
[2021-02-18 14:00] LABS: ABG HCO3 23 mmol/L (22-26); ABG PCO2 57 mmHg (35-45); ABG PO2 92 mmHg (80-105); ABG TCO2 24
[2021-02-18] MEDS: INSULIN REGULAR, HUMAN 3ML VL 100 UNIT in SODIUM CHLORIDE 0.9% 100 ML 99 ML IV PRN ×4 (15:06→20:49)
[2021-02-18] MEDS: ROCURONIUM 1250MG/NS 250 250 ML IV PRN (15:11)
[2021-02-18] MEDS: CEFEPIME 1 GM in SODIUM CHLORIDE 0.9% 50ML 50 ML IV SCH (22:31)
[2021-02-18] MEDS: LINEZOLID 600 MG/D5W 300ML 300 ML IV SCH (22:55)
[2021-02-19] VITALS (27 sets, daily range): BP systolic 86–163; BP diastolic 54–83
[2021-02-19] MEDS: NOREPINEPHRINE 8 MG/D5W 250 ML 250 ML IV SCH (01:09)
[2021-02-19] MEDS: MIDAZOLAM HCL 5MG/ML 10ML VIAL 100 ML IV PRN ×4 (02:17→16:00)
[2021-02-19] MEDS: PROPOFOL IV EMULSION 50 ML IV SCH ×2 (02:40→21:11)
[2021-02-19] MEDS: VANCOMYCIN 250MG/5ML ORAL SOLN PO SCH ×3 (06:00→17:33)
[2021-02-19 06:15] LABS: BASOPHILS # (AUTO) 0.1 (0.0-0.1); BASOPHILS % 0.4 % (0.0-1.0); EOSINOPHILS # (AUTO) 0.3 (0.0-0.4); EOSINOPHILS % 1.1 % (0.0-6.0); HEMATOCRIT 24.9 % (38.2-49.6); HEMOGLOBIN 7.8 g/dL (14.0-18.0); LYMPHOCYTES # (AUTO) 2.1 (1.0-3.2); LYMPHOCYTES % 6.6 % (18.0-39.1); MEAN CORPUSCULAR HEMOGLOBIN 29.2 pg (28-32); MEAN CORPUSCULAR HGB CONC 31.3 g/dL (31-35); MEAN CORPUSCULAR VOLUME 93.3 fL (81-99); MONOCYTES # (AUTO) 1.8 (0.2-0.8); MONOCYTES % 5.8 % (4.4-11.3); NEUTROPHILS # (AUTO) 23.4 (2.1-6.9); NEUTROPHILS % 74.4 % (38.7-80.0); PLATELET COUNT 295 x10e3/uL (140-360); RED BLOOD COUNT 2.67 x10e6/uL (4.3-5.7); RED CELL DISTRIBUTION WIDTH 16.8 % (11.7-14.4)
[2021-02-19] MEDS: ROCURONIUM 1250MG/NS 250 250 ML IV PRN (06:34)
[2021-02-19 07:09] LABS: ALBUMIN 1.4 g/dL (3.5-5.0); ALBUMIN/GLOBULIN RATIO 0.3 (0.8-2.0); ANION GAP 24.2 mmol/L (8-16); CALCIUM 8.1 mg/dL (8.4-10.2); CREATININE, SERUM 4.71 mg/dL (0.72-1.25); POTASSIUM 5.2 mmol/L (3.5-5.1)
[2021-02-19] MEDS: AMLODIPINE BESYLATE 5 MG TAB PO SCH (09:00)
[2021-02-19 09:22] LABS: ABG HCO3 19 mmol/L (22-26); ABG PCO2 61 mmHg (35-45); ABG PH 7.11 (7.35-7.45); ABG PO2 73 mmHg (80-105); ABG TCO2 21
[2021-02-19 09:59] LABS: BAND NEUTROPHILS % (MANUAL) 3 %; LYMPHOCYTES % (MANUAL) 4 % (19-48); METAMYELOCYTES % (MANUAL) 4 % (0-0); MONOCYTES % (MANUAL) 3 % (3.4-9.0); MYELOCYTES % (MANUAL) 3 % (0-0); NEUTROPHILS % (MANUAL) 82 % (40-74); NUCLEATED RED BLOOD CELLS 4
[2021-02-19 10:02] LABS: ANISOCYTOSIS SLIGHT; HYPOCHROMASIA SLIGHT; PLATELET ESTIMATE ADEQUATE; PLATELET MORPHOLOGY COMMENT FEW LARGE; POLYCHROMASIA FEW; RBC MORPHOLOGY COMMENT ABNORMAL
[2021-02-19] MEDS ORDERED: SODIUM BICARBONATE 8.4% INJ 50 ML SYR IV ONE (10:30)
[2021-02-19] MEDS ORDERED: SODIUM CHLORIDE 0.9% 250ML 500 ML IV PRN (10:30)
[2021-02-19] MEDS ORDERED: ALBUMIN 25% 12.5GM 0.25 GM/ML BTL IV PRN (10:30)
[2021-02-19] MEDS ORDERED: HEPARIN SOD (PORCINE) 1000 UNIT/ML SDV IV PRN (10:30)
[2021-02-19] MEDS: DOCUSATE SODIUM LIQD 100 MG/10 ML UDC NG SCH ×2 (10:46→17:33)
[2021-02-19] MEDS: ZINC SULFATE 220 MG CAP PO SCH (10:46)
[2021-02-19] MEDS: ASCORBIC ACID 500 MG TAB PO SCH ×2 (10:46→17:33)
[2021-02-19] MEDS: SODIUM BICARBONATE 8.4% SYRING 150 ML in DEXTROSE 5% 1,000 ML IV SCH ×2 (11:30→20:00)
[2021-02-19] MEDS: LINEZOLID 600 MG/D5W 300ML 300 ML IV SCH ×2 (12:00→23:03)
[2021-02-19] MEDS: FENTANYL 2000MCG/NS 250 250 ML IV SCH ×2 (12:00→19:54)
[2021-02-19] MEDS: FLUCONAZOLE 200 MG/100 ML 100 ML IV SCH (13:21)
[2021-02-19 14:13] LABS: ABG HCO3 26 mmol/L (22-26); ABG PCO2 60 mmHg (35-45); ABG PH 7.25 (7.35-7.45); ABG PO2 81 mmHg (80-105); ABG TCO2 28
[2021-02-19] MEDS: INSULIN REGULAR, HUMAN 3ML VL 100 UNIT in SODIUM CHLORIDE 0.9% 100 ML 99 ML IV PRN ×2 (20:09)
[2021-02-19] MEDS: HEPARIN 25,000 UNIT 1,500 UNIT in DEXTROSE 5% 250ML 250 ML IV SCH (20:49)
[2021-02-19] MEDS: CEFEPIME 1 GM in SODIUM CHLORIDE 0.9% 50ML 50 ML IV SCH (21:46)
[2021-02-20] VITALS (25 sets, daily range): BP systolic 79–147; BP diastolic 52–76
[2021-02-20] MEDS: VANCOMYCIN 250MG/5ML ORAL SOLN PO SCH ×4 (01:00→17:30)
[2021-02-20] MEDS: PROPOFOL IV EMULSION 50 ML IV SCH ×3 (02:35→15:13)
[2021-02-20 06:20] LABS: BASOPHILS # (AUTO) 0.1 (0.0-0.1); BASOPHILS % 0.4 % (0.0-1.0); EOSINOPHILS # (AUTO) 0.5 (0.0-0.4); EOSINOPHILS % 1.4 % (0.0-6.0); HEMATOCRIT 23.3 % (38.2-49.6); HEMOGLOBIN 7.5 g/dL (14.0-18.0); LYMPHOCYTES # (AUTO) 2.2 (1.0-3.2); LYMPHOCYTES % 6.5 % (18.0-39.1); MEAN CORPUSCULAR HEMOGLOBIN 29.5 pg (28-32); MEAN CORPUSCULAR HGB CONC 32.2 g/dL (31-35); MEAN CORPUSCULAR VOLUME 91.7 fL (81-99); MONOCYTES # (AUTO) 1.9 (0.2-0.8); MONOCYTES % 5.7 % (4.4-11.3); NEUTROPHILS # (AUTO) 24.9 (2.1-6.9); PLATELET COUNT 243 x10e3/uL (140-360); RED BLOOD COUNT 2.54 x10e6/uL (4.3-5.7); RED CELL DISTRIBUTION WIDTH 16.9 % (11.7-14.4)
[2021-02-20 06:48] LABS: ALBUMIN 1.3 g/dL (3.5-5.0); ALBUMIN/GLOBULIN RATIO 0.3 (0.8-2.0); ANION GAP 25.9 mmol/L (8-16); CALCIUM 7.5 mg/dL (8.4-10.2); CREATININE, SERUM 4.06 mg/dL (0.72-1.25); POTASSIUM 3.9 mmol/L (3.5-5.1)
[2021-02-20] MEDS ORDERED: PROPOFOL IV EMULSION 10MG/ML 100 ML ONE ×2 (06:49→15:52)
[2021-02-20] MEDS: DOCUSATE SODIUM LIQD 100 MG/10 ML UDC NG SCH ×2 (08:12→17:00)
[2021-02-20] MEDS: AMLODIPINE BESYLATE 5 MG TAB PO SCH (08:12)
[2021-02-20] MEDS: ASCORBIC ACID 500 MG TAB PO SCH ×2 (08:12→17:30)
[2021-02-20] MEDS: ZINC SULFATE 220 MG CAP PO SCH (08:13)
[2021-02-20] MEDS: FENTANYL 2000MCG/NS 250 250 ML IV SCH ×2 (08:14→22:02)
[2021-02-20] MEDS: MIDAZOLAM HCL 5MG/ML 10ML VIAL 100 ML IV PRN ×2 (08:15→17:55)
[2021-02-20 08:21] LABS: ABG HCO3 23 mmol/L (22-26); ABG PCO2 57 mmHg (35-45); ABG PH 7.21 (7.35-7.45); ABG PO2 58 mmHg (80-105)
[2021-02-20 08:22] LABS: ABG TCO2 25
[2021-02-20 10:54] LABS: BAND NEUTROPHILS % (MANUAL) 7 %; EOSINOPHILS % (MANUAL) 1 % (0-7); LYMPHOCYTES % (MANUAL) 6 % (19-48); MONOCYTES % (MANUAL) 2 % (3.4-9.0); MYELOCYTES % (MANUAL) 1 % (0-0); NEUTROPHILS % (MANUAL) 83 % (40-74); NUCLEATED RED BLOOD CELLS 6
[2021-02-20 10:55] LABS: PLATELET ESTIMATE ADEQUATE; PLATELET MORPHOLOGY COMMENT FEW LARGE; RBC MORPHOLOGY COMMENT NORMAL
[2021-02-20] MEDS: FLUCONAZOLE 200 MG/100 ML 100 ML IV SCH (11:00)
[2021-02-20] MEDS: LINEZOLID 600 MG/D5W 300ML 300 ML IV SCH ×2 (13:14→21:38)
[2021-02-20] MEDS ORDERED: SODIUM BICARBONATE 8.4% SYRING 150 ML in DEXTROSE 5% 1,000 ML IV SCH (14:00)
[2021-02-20] MEDS: INSULIN REGULAR, HUMAN 3ML VL 100 UNIT in SODIUM CHLORIDE 0.9% 100 ML 99 ML IV PRN ×2 (15:14)
[2021-02-20] MEDS: NOREPINEPHRINE 8 MG/D5W 250 ML 250 ML IV SCH ×2 (17:27→23:40)
[2021-02-20] MEDS: CEFEPIME 1 GM in SODIUM CHLORIDE 0.9% 50ML 50 ML IV SCH (20:57)
[2021-02-21] VITALS: BP 87/57
[2021-02-21] MEDS: VANCOMYCIN 250MG/5ML ORAL SOLN PO SCH (00:34)
[2021-02-21 01:00] VITALS: BP 72/52
[2021-02-21] MEDS ORDERED: PROPOFOL IV EMULSION 10MG/ML 100 ML ONE (01:13)
[2021-02-21] MEDS: ROCURONIUM 1250MG/NS 250 250 ML IV PRN (01:16)
[2021-02-21] MEDS: VASOPRESSIN 60 UNIT in DEXTROSE 5% 50ML 57 ML IV PRN (01:21)
[2021-02-21] MEDS: PROPOFOL IV EMULSION 50 ML IV SCH (01:24)
[2021-02-21 02:00] VITALS: BP_SYST 121; BP_SYST 71; BP_DIAS 47; BP_DIAS 58
[2021-02-21 03:00] VITALS: BP_SYST 57; BP_SYST 71; BP_SYST 82; BP_DIAS 35; BP_DIAS 41; BP_DIAS 43
[2021-02-21 04:00] VITALS: BP_SYST 39; BP_SYST 90; BP_DIAS 33
[2021-02-21] MEDS: NOREPINEPHRINE 8 MG/D5W 250 ML 250 ML IV SCH (04:23)
[2021-02-21] MEDS: MIDAZOLAM HCL 5MG/ML 10ML VIAL 100 ML IV PRN (04:25)
[2021-02-21] MEDS ORDERED: SODIUM BICARBONATE 8.4% INJ 50 ML SYR ONE (09:43)
[2021-02-21] MEDS ORDERED: EPINEPHRINE HCL SYRINGE ONE (09:43)
== END 2021-02-21 11:51 | disposition expired | DRG 207 ==
LOC: ER 14:58 → ERHOLD 16:38 → ICU 02-05 19:51 → COVIDICU 02-08 09:45
PROVIDERS: ADMIT Internal Medicine; ATTEND Internal Medicine
PROC: 02HV33Z Insertion of Infusion Device into Superior Vena Cava, Percutaneous Approach (ICD-10-PCS; 2021-02-03)
PROC: 8E0ZXY6 Isolation (ICD-10-PCS; 2021-02-03)
PROC: XW043E5 Introduction of Remdesivir Anti-infective into Central Vein, Percutaneous Approach, New Technology Group 5 (ICD-10-PCS; 2021-02-03)
PROC: 5A1955Z Respiratory Ventilation, Greater than 96 Consecutive Hours (ICD-10-PCS; principal; 2021-02-07)
PROC: 0BH17EZ Insertion of Endotracheal Airway into Trachea, Via Natural or Artificial Opening (ICD-10-PCS; 2021-02-07)
PROC: 03HC33Z Insertion of Infusion Device into Left Radial Artery, Percutaneous Approach (ICD-10-PCS; 2021-02-07)
PROC: 02HV33Z Insertion of Infusion Device into Superior Vena Cava, Percutaneous Approach (ICD-10-PCS; 2021-02-07)
PROC: 5A1D70Z Performance of Urinary Filtration, Intermittent, Less than 6 Hours Per Day (ICD-10-PCS; 2021-02-13)
PROC: 02HV33Z Insertion of Infusion Device into Superior Vena Cava, Percutaneous Approach (ICD-10-PCS; 2021-02-16)
PROC: 5A12012 Performance of Cardiac Output, Single, Manual (ICD-10-PCS; 2021-02-21)
DX: U07.1 COVID-19 (principal); J12.82 Pneumonia due to coronavirus disease 2019; J96.00 Acute respiratory failure, unspecified whether with hypoxia or hypercapnia; J96.01 Acute respiratory failure with hypoxia; N17.0 Acute kidney failure with tubular necrosis; A41.89 Other specified sepsis; R65.21 Severe sepsis with septic shock; E87.0 Hyperosmolality and hypernatremia; I82.621 Acute embolism and thrombosis of deep veins of right upper extremity; E87.2 Acidosis; E11.22 Type 2 diabetes mellitus with diabetic chronic kidney disease; I12.9 Hypertensive chronic kidney disease with stage 1 through stage 4 chronic kidney disease, or unspecified chronic kidney disease; N18.30 Chronic kidney disease, stage 3 unspecified; E87.6 Hypokalemia; I46.8 Cardiac arrest due to other underlying condition; E78.5 Hyperlipidemia, unspecified; E11.65 Type 2 diabetes mellitus with hyperglycemia; D69.59 Other secondary thrombocytopenia; D64.9 Anemia, unspecified; Z66 Do not resuscitate; E87.5 Hyperkalemia
CPT/HCPCS: 31500; 36415; 36569; 36584; 36600; 71045; 80048; 80053; 82150; 82728; 82805; 82948; 83605; 83735; 84145; 85025; 85379; 85610; 85730; 86704; 86706; 87040; 87070; 87205; 87340; 90962; 93005; 93970; 94002; 94003; 94660; 99285; J0171; J0330; J0456; J0692; J0696; J1100; J1450; J1644; J1650; J1815; J1817; J1940; J2020; J2150; J2185; J2250; J3370; J7030; J7050; J7070; P9047; U0002